=== PATIENT | female | born 1965 | race Caucasian/White ===

== ENCOUNTER 2019-02-06 13:34 | Inpatient (IN) ==
--- NOTE | 2019-02-06 14:28 | PROVIDER DOCUMENTATION ---
HPI-General Adult - General Chief Complaint: Bleeding Disorder Stated Complaint: NEED PLATELETS CHECKED Time Seen by Provider: 02/06/19 14:01 Source: patient, family Allergies/Adverse Reactions: Patient Allergies Allergy/AdvReac Type Severity Reaction Status Date / Time No Known Allergies Allergy Verified 12/10/18 14:07 Home Medications: Home Medication List Medication Instructions Recorded Confirmed Last Taken Type Potassium Chloride E.r. [Klor-Con] 40 meq PO BID 08/12/18 01/29/19 01/29/19 History Morphine E.r. [Ms Contin] 15 mg PO BID 08/18/18 01/29/19 01/29/19 History Morphine E.r. [Ms Contin] 30 mg PO Q12HR 08/28/18 01/29/19 01/29/19 History Oxycodone HCl/Acetaminophen 1 tab PO Q6-8H PRN PRN 08/28/18 01/29/19 01/29/19 History [Percocet 10-325 mg Tablet] Omeprazole [Prilosec] 40 mg PO DAILY 09/04/18 01/29/19 01/29/19 History Diphenhyramine/Al&mg Oh/Lido [Mbx 15 ml MT Q4-6H PRN PRN 09/12/18 01/29/19 01/29/19 History Solution] - History of Present Illness -Gen Adult Nature of Presenting Problems: [id number] presents to the ER with c/o nose bleed and bleeding gums through the [facility]. She states she is actively receiving chemo therapy (Gemzar and Abraxane) for metastatic pancreatic CA. She is a patient of Dr Alcaraz. Yesterday, she had labs done at his office, she reports her platelets were 75,000. She states she was sent here by the office for redraw of labs. She reports getting a neulasta injection last . She also reports that yesterday in the office she was told that she had a possible pulmonary embolism vs something else she was unable to remember. She was not started on blood thinners. Location of Pain/Injury: reports: none Similar Symptoms Previously?: Yes Recently seen or treated by another doctor?: Yes Review of Systems - Adult - REVIEW OF SYSTEMS - ADULT Constitutional: reports: no symptoms reported. denies: chills, fever Eyes: reports: no symptoms reported Ears, Nose, Mouth & Throat: reports: see HPI, epistaxis, other (bleeding gums) Cardiovascular: reports: no symptoms reported Respiratory: reports: no symptoms reported. denies: cough, dyspnea on exertion, shortness of breath, wheezing Gastrointestinal: reports: no symptoms reported Genitourinary: reports: no symptoms reported Musculoskeletal: reports: no symptoms reported Integumentary: reports: no symptoms reported Neurological: reports: no symptoms reported Psychiatric: reports: no symptoms reported Endocrine: reports: no symptoms reported Hematologic/Lymphatic: reports: see HPI, easy bruising, low blood count, transfusions Allergic/Immunologic: reports: no symptoms reported All Other Systems: Reviewed and Negative Past History - Adult - PAST MEDICAL HISTORY-ADULT Review of Records: reports: Old Records Reviewed, Nursing Assessment Review, Medications Reviewed, Social history reviewed & non-contributory. Major Childhood Illnesses: reports: denies history Cardiovascular: reports: blood clots (questionable PE) Respiratory: reports: denies history Gastrointestinal: reports: cancer (pancreatic CA with mets to liver) Obstetrical/Gynecological: reports: denies history Genitourinary: reports: denies history Musculoskeletal: reports: denies history Neurological: reports: denies history Endocrine/Immune: reports: denies history Other Conditions: reports: denies history - PRIOR SURGERIES/PROCEDURES Surgical/Procedure History: reports: cholecystectomy, hysterectomy - IMMUNIZATION STATUS Childhood Immunizations: See Nurse Assessment Flu Vaccine: See Nurse Assessment - FAMILY HISTORY Family History: reviewed, not pertinent - SOCIAL HISTORY Living Situation: family Physical Exam-General - PHYSICAL EXAM-ADULT Initial Vital Signs Reviewed: Yes - CONSTITUTIONAL General Appearance: alert, no apparent distress - EYES Eyes: PERRL/EOMI, pink conjunctivae - HEAD, EARS, NOSE, MOUTH & THROAT HENMT: normocephalic/atraumatic, moist mucous membranes, normal ENT inspection - NECK Neck: non-tender, full range of motion, supple - RESPIRATORY Respiratory: chest non-tender, lungs clear, normal breath sounds - CARDIOVASCULAR Cardiovascular: normal peripheral pulses, regular rate, rhythm - GASTROINTESTINAL (ABDOMEN) Abdominal Exam: soft, tenderness (generalized) - MUSCULOSKELETAL Back Exam: normal inspection Extremity: normal gait Peripheral Pulses: radial (R): 2+, radial (L): 2+ - SKIN Integumentary: warm/dry, ecchymosis (multiple stages of healing), pallor - NEUROLOGIC Neurologic: grossly normal - PSYCHIATRIC Psych/Mental Status: normal mood/affect, normal thought content, oriented x 3 Progress - PLAN OF CARE/RESULTS Progress/Plan/Lab Results: Vital Signs - 8 hr 02/06/19 13:39 Temperature 97 F L Pulse Rate 107 H Respiratory Rate 20 Blood Pressure 103/71 O2 Sat by Pulse Oximetry 97 Orders Category Date Time Status CBC WITH ELECTRONIC DIFF [HEME] Stat Lab 02/06/19 14:03 Uncollected PROTIME WITH INR [COAG] Stat Lab 02/06/19 14:03 Ordered patient verbalizes an understanding of POC and agrees with treatment rendered here today. Result Diagrams: 02/06/19 14:56 - CONSULTS/PCP/HOSPITALIST Notification #1 *Consult/PCP/Hospitalist*: MIYA Hankins Time Discussed: 16:00 Reason/Comments: leukocytosis, Thrombocytopenia Consult Disposition: Admit Departure - Departure Date of Disposition Decision: 02/06/19 Time of Disposition Decision: 16:01 DIAGNOSIS: Thrombocytopenia Leukocytosis Qualifiers: Leukocytosis type: unspecified Qualified Code(s): D72.829 - Elevated white blood cell count, unspecified Disposition: ADMITTED INPATIENT 09 Certified Medical Emergency: Emergent Condition: Critical Additional Freetext Instructions: ED Follow Up Instructions: You have been treated by a care provider in the Emergency Department. These instructions are being provided to you so you can have an understanding of how to care for yourself upon discharge. Upon discharge from the Emergency Department, you are responsible for making arrangements for follow-up care by a physician of your choice. Take all prescribed medications as directed. Return to the Emergency Department immediately for any new or worsening symptoms. You may call the Physician Referral phone number at [phone] of Physicians who are taking new patients. Referrals and Follow-Ups: Valente Ward MD [Primary Care Provider] - - Critical Care Note This patient required my direct & personal management of CC.: No Attestation - Physician/ YAN Attestation Patient care was provided by Advanced Practice Provider:: Yes Advanced Practice Provider:: Zohaib Clay Advanced Practice Provider documentation review:: The Mid-level provider documentation, treatment plan and medical decision making was reviewed by the physician who agrees with all treatment and medical decision making by the [facility]. The physician spent face to face time with patient:: No Advanced Practice Provider documentation review:: Supervising physician onsite and consulted in the evaluation and care of this patient. The physician did not have a face to face encounter with the patient.
[2019-02-06 15:18] LABS: INR 1.17; PROTIME 15.1 Seconds (11.0-16.0)
[2019-02-06 15:40] LABS: PLT 23 X1000 (130-400)
[2019-02-06 15:42] LABS: BASO# 0.28 X1000 (0.0-0.2); BASO% 1.6 % (0.0-0.8); EOS# 0.01 X1000 (0.0-0.7); EOS% 0.1 % (0.0-10.0); HEMATOCRIT 29.5 % (37.0-47.0); HEMOGLOBIN 9.7 g/dL (12.0-16.0); IMM GRAN# 1.95 X1000 (0.0-0.04); IMM GRAN% 11.3 % (0.0-0.5); LYMPH# 3.25 X1000 (1.2-3.4); LYMPH% 18.8 % (20.5-51.1); MCHC 32.9 g/dL (33-37); MCV 100.3 FL (81-99); MONO% 8.7 % (1.7-9.3); NEUT% 59.5 % (42.2-75.2); RBC 2.94 XMIL (4.2-5.4); RDW 18.8 % (11.5-14.5); WBC 17.29 X1000 (4.8-10.8)
[2019-02-06 16:16] LABS: ANISOCYTOSIS 2+; LARGE PLATELETS OCCASIONAL; LYMPHS 12 % (21-51); MONO 2 % (1-9); NRBC 2 % (0-0); SEGS 82 % (42-75)
--- NOTE | 2019-02-06 17:39 | HISTORY AND PHYSICAL ---
HISTORY OF PRESENT ILLNESS: This is a 53-year-old who apparently is getting chemotherapy, got her last chemotherapy last week, I think last . She is followed by Dr. Valente Ward for pancreatic cancer with metastases I believe to the liver. When she presented, her platelet counts were down to 23,000. They went from 75,000 a week before and came down to 25,000. She did on Saturday, this is Saturday, she had some trouble with nosebleed and with a little bleeding when she was brushing her teeth. PAST MEDICAL HISTORY: Pretty unremarkable. She did have cervical cancer, and that is what she had a hysterectomy for. I think she has had her gallbladder out. Really no other medical issues and now treating for metastatic pancreatic cancer. ALLERGIES: She has no known drug allergies. SOCIAL HISTORY: She does not drink any alcohol, but she smokes about a pack a day. FAMILY HISTORY: Positive for cancer. Father of lung cancer I believe. REVIEW OF SYSTEMS: General: Her weight has been pretty steady. She has not been eating real well, not much appetite, not sure if she has lost any weight. No fever or chills. HEENT: No change in visual or hearing acuity. Respiratory: No increased work of breathing or dyspnea. Cardiovascular: No chest pain or tachy palpitation. Gastrointestinal/Genitourinary: No gross hematuria or dysuria. No nausea. No hematemesis or hematochezia. Endocrinologic/hematologic: No significant history. PHYSICAL EXAMINATION: VITAL SIGNS: In the emergency room, temperature 97 degrees, pulse 107, respirations 20, blood pressure 103/70. EYES: Pupils are equal and round. LUNGS: Clear in all lung resendez. CARDIOVASCULAR EXAM: Regular rhythm and rate without murmur or S3. ABDOMEN: Soft. SKIN: Warm and dry. She has petechiae and some ecchymosis on both extremities rather symmetrical and some areas of excoriation where she was scratching. She has a few petechiae on her lip and her face. No bleeding in the oral nasal mucosa. LABORATORY DATA: White count 17,290, hematocrit is 29, platelet count is 23,000. Protime is 15, INR is 1.7. In addition, she had a CAT scan for follow-up staging on her pancreatic cancer, and they discovered what sounds like a small pulmonary embolus so he started her on Xarelto and that was started I think on Saturday. ASSESSMENT AND PLAN: She has got symptomatic thrombocytopenia, and she has recently been diagnosed with a pulmonary embolus with underlying pancreatic cancer. I am going to not give any platelets at this time. I think the white count is elevated. I think she has gotten some neutrophil stimulant and growth factor last week, at least that was what she indicated by her report. I am going to put her on a low dose of Lovenox for right now. We will check her platelet count again in the morning. She appears to be stable. No sign of internal bleeding, and if the platelet count is coming up, then I think we can put her back on Xarelto and let her go home. She shows no sign of infection or sepsis. I think her elevation of white count, which is predominantly neutrophils and some immature granulocytes, is likely secondary to bone marrow stimulant. cc: Aries Rayo MD
[2019-02-06] MEDS ORDERED: MBX SOLUTION MT PRN (17:47)
[2019-02-06] MEDS ORDERED: NICODERM PATCH TD ONE (17:47)
[2019-02-06] MEDS ORDERED: TYLENOL PO PRN (17:47)
[2019-02-06] MEDS ORDERED: ZOFRAN IV PRN (17:47)
[2019-02-06] MEDS: LOVENOX SUBQ SCH (18:07)
[2019-02-06] MEDS: KLOR-CON PO SCH (21:02)
[2019-02-06] MEDS: MS CONTIN PO SCH (21:02)
[2019-02-06] MEDS: PRILOSEC PO SCH (21:03)
[2019-02-06] MEDS: PERCOCET-10 PO PRN (21:44)
[2019-02-07 00:46] LABS: URINE SOURCE CLEAN CATCH
[2019-02-07 00:52] LABS: BILIRUBIN URINE SMALL (NEGATIVE); BLOOD URINE TRACE (NEGATIVE); COLOR YELLOW; GLUCOSE URINE NEGATIVE (NEGATIVE); KETONE URINE NEGATIVE (NEGATIVE); LEUKOCYTES URINE NEGATIVE (NEGATIVE); NITRITE URINE NEGATIVE (NEGATIVE); PH URINE 6.5; PROTEIN URINE 30 mg/dL (NEGATIVE); SP GRAVITY URINE 1.022; TURBIDITY URINE HAZY (CLEAR); UR EPITHELIAL CELLS >10 /HPF (<10); URINE BACTERIA 1+ /HPF; URINE CASTS NONE SEEN; URINE CRYSTALS NONE SEEN; URINE RBC <10 /HPF (<10); URINE SMALL ROUND CELLS NONE SEEN; URINE WBC <10 /HPF (<10); URINE YEAST PRESENT; UROBILINOGEN URINE 8 mg/dL (NORMAL)
[2019-02-07] MEDS: PERCOCET-10 PO PRN ×3 (06:16→21:01)
[2019-02-07] MEDS: PRILOSEC PO SCH ×4 (06:16→20:32)
[2019-02-07 07:37] LABS: HEMOGLOBIN 9.4 g/dL (12.0-16.0); RBC 2.82 XMIL (4.2-5.4); WBC 22.38 X1000 (4.8-10.8)
[2019-02-07 07:38] LABS: BASO# 0.28 X1000 (0.0-0.2); BASO% 1.3 % (0.0-0.8); EOS# 0.02 X1000 (0.0-0.7); EOS% 0.1 % (0.0-10.0); HEMATOCRIT 28.2 % (37.0-47.0); IMM GRAN# 3.24 X1000 (0.0-0.04); IMM GRAN% 14.5 % (0.0-0.5); LYMPH% 17.4 % (20.5-51.1); MCH 33.3 PG (27-31); MCHC 33.3 g/dL (33-37); MONO# 2.04 X1000 (0.11-0.59); MONO% 9.1 % (1.7-9.3); NEUT% 57.6 % (42.2-75.2); RDW 19.1 % (11.5-14.5)
[2019-02-07 07:40] LABS: PLT 25 X1000 (130-400)
[2019-02-07 08:08] LABS: AGAP 6; ALB/GLOB RATIO 0.9; ALKALINE PHOSPHATASE 504 U/L (32-104); BUN 4 mg/dL (8-22); CALCIUM 8.8 mg/dL (8.8-10.2); CHLORIDE 101 mmol/L (98-107); COSMO 262; CREATININE 0.7 mg/dL (0.5-0.9); ESTIMATED GFR > 60; GLUCOSE 82 mg/dL (70-104); GOT 27 U/L (10-30); GPT 11 U/L (10-36); MAGNESIUM 1.6 mg/dL (1.5-2.7); POTASSIUM 3.9 mmol/L (3.5-5.1); SODIUM 133 mmol/L (136-145); TCO2 26 mmol/L (25-35); TOTAL BILIRUBIN 1.26 mg/dL (0.20-1.00); TOTAL PROTEIN 6.2 g/dL (6.3-8.3)
[2019-02-07] MEDS: MS CONTIN PO SCH ×2 (08:17→20:20)
[2019-02-07] MEDS: KLOR-CON PO SCH ×2 (08:17→20:19)
--- NOTE | 2019-02-07 12:42 | PROGRESS NOTE ---
DATE: 02/07/2019 SUBJECTIVE: Mrs Chavez feels fine. She had a good night. She is still not hungry, not eating much, and remains afebrile. OBJECTIVE: Vital signs: Temperature 98.3 degrees, pulse 80, respirations 16, blood pressure 111/40. HEENT: Pupils are equal and round. No oronasal mucosa bleeding. Lungs: Clear in all lung resendez. Cardiovascular: Regular rhythm and rate without murmur or S3. Abdomen: Soft. Skin: Warm and dry. Petechiae have faded in her arms. LABORATORY DATA: Platelet count around 25,000. ASSESSMENT: 1. Symptomatic thrombocytopenia in the way of petechiae and bruising. No active bleeding. Platelet count 25,000. She feels pretty good. 2. Poor appetite. Encourage p.o. intake. PLAN: We will let her have some Phenergan as needed for nausea. If platelet count is okay and if still not bleeding and above 30,000, I think she can probably go home tomorrow and I will put her back on her Xarelto. Right now, she is getting just low-dose Lovenox 40 mg subcutaneous q.24 hours. There is no swelling in her lower extremities and no complaints of shortness of breath. cc: Aries Rayo MD
[2019-02-07] MEDS: PHENERGAN PO PRN ×2 (12:48→20:27)
[2019-02-07] MEDS: LOVENOX SUBQ SCH (17:53)
[2019-02-07] MEDS: NICODERM PATCH TD SCH (18:10)
[2019-02-07 18:30] LABS: BASO# 0.52 X1000 (0.0-0.2); BASO% 2.2 % (0.0-0.8); EOS# 0.03 X1000 (0.0-0.7); EOS% 0.1 % (0.0-10.0); HEMATOCRIT 26.8 % (37.0-47.0); HEMOGLOBIN 8.8 g/dL (12.0-16.0); IMM GRAN# 3.59 X1000 (0.0-0.04); LYMPH# 3.76 X1000 (1.2-3.4); LYMPH% 15.8 % (20.5-51.1); MCH 33.1 PG (27-31); MCHC 32.8 g/dL (33-37); MCV 100.8 FL (81-99); MONO# 2.33 X1000 (0.11-0.59); MONO% 9.8 % (1.7-9.3); MPV 11.6 FL (7.4-10.4); NEUT# 13.64 X1000 (1.4-6.5); NEUT% 57.1 % (42.2-75.2); RBC 2.66 XMIL (4.2-5.4); WBC 23.87 X1000 (4.8-10.8)
[2019-02-07 18:31] LABS: RDW 19.2 % (11.5-14.5)
[2019-02-07 18:32] LABS: PLT 31 X1000 (130-400)
[2019-02-07 19:49] LABS: BANDS 1 % (0-1); LYMPHS 16 % (21-51); MONO 4 % (1-9); NRBC 2 % (0-0); SEGS 77 % (42-75)
[2019-02-07 19:50] LABS: ANISOCYTOSIS 1+; LARGE PLATELETS OCCASIONAL
[2019-02-08] MEDS: PERCOCET-10 PO PRN ×3 (03:26→18:51)
[2019-02-08] MEDS: PRILOSEC PO SCH ×3 (06:19→20:18)
[2019-02-08] MEDS: PHENERGAN PO PRN ×3 (06:22→21:19)
[2019-02-08 07:33] LABS: EOS# 0.02 X1000 (0.0-0.7); EOS% 0.1 % (0.0-10.0); HEMOGLOBIN 9.1 g/dL (12.0-16.0); LYMPH# 4.64 X1000 (1.2-3.4); LYMPH% 16.1 % (20.5-51.1); MCH 34.1 PG (27-31); MCHC 33.7 g/dL (33-37); MCV 101.1 FL (81-99); MONO# 3.14 X1000 (0.11-0.59); MONO% 10.9 % (1.7-9.3); MPV 12.8 FL (7.4-10.4); PLT 38 X1000 (130-400); RBC 2.67 XMIL (4.2-5.4); RDW 19.6 % (11.5-14.5); WBC 28.88 X1000 (4.8-10.8)
[2019-02-08 07:38] LABS: LYMPHS 18 % (21-51); MONO 6 % (1-9); SEGS 76 % (42-75)
[2019-02-08] MEDS: KLOR-CON PO SCH ×2 (08:51→20:18)
[2019-02-08] MEDS: MS CONTIN PO SCH ×2 (08:52→20:18)
--- NOTE | 2019-02-08 13:08 | HEMO/ONC CONSULTATION ---
DATE: 02/08/2019 HISTORY OF PRESENT ILLNESS: Ms. Chavez is a 53-year-old white female followed by Dr. Ward with metastatic pancreatic carcinoma. She was admitted over the weekend with epistaxis and thrombocytopenia. She had chemotherapy with gemcitabine and Abraxane within the last 10 days. She received Neulasta in the office after her treatment. A CT scan of the chest done last week showed evidence of a possible pulmonary embolus, and she was started on Xarelto. PAST MEDICAL HISTORY: As noted above. She has a history of pancreatic cancer with liver metastasis. SOCIAL HISTORY AND FAMILY HISTORY: Well documented in Dr. Ward's note from the clinic. REVIEW OF SYSTEMS: Since admission, she has had no additional bleeding. She has noticed some petechial spots on her skin. DIAGNOSTIC DATA: In the emergency room, her initial platelet count was 23,000 with hemoglobin 9.7, white count 17.2. ASSESSMENT AND PLAN: The patient was started on antiemetics and is on Lovenox subcutaneously b.i.d. She has had no further bleeding over the past 48 hours. This morning, her platelet count is improved at 38,000. Her hematocrit remains stable. White count is 28.8, likely due to growth factor support. cc: Santiago Nielson MD
--- NOTE | 2019-02-08 13:13 | HEMO/ONC CONSULTATION ---
DATE: 02/08/2019 CONTINUATION REPORT PHYSICAL EXAMINATION: The patient is in no acute distress. Her vital signs are stable. She is alert and oriented. HEENT: The pupils are equal and reactive. There is no oral thrush. Neck is supple. No nodes. No thyromegaly. The skin shows a few petechia and some ecchymosis on the upper extremities. Lungs are clear with bilateral breath sounds. Heart is regular rate and rhythm. No murmur or gallop. The abdomen is soft and nontender. Liver and spleen not palpated. Neurologic: Nonfocal. IMPRESSION: Thrombocytopenia. The patient has very likely chemotherapy induced thrombocytopenia secondary to recent treatment. Her PTE is a compounding problem in the setting of low platelet count. If she has evidence of active bleeding, then she should be considered for IVC filter placement, but I have discussed her case with Dr. Rayo, and the patient appears clinically stable with improving platelet count. There does not appear to be evidence of heparin induced thrombocytopenia, but we will check for heparin dependent antibodies. If she has evidence of worsening respiratory symptoms, then she should be reevaluated for additional PTE. A Doppler study on her lower extremities has been obtained and shows no evidence of active thrombosis in the lower extremities. I would recommend we monitor her closely, and hopefully her platelet count will continue to improve as her bone marrow recovers from recent chemotherapy. Once her platelet count increases above 50,000, it would be reasonable to resume full dose anticoagulation. cc: Santiago Nielson MD
[2019-02-08] MEDS ORDERED: DULCOLAX PR PRN (13:51)
[2019-02-08] MEDS: MILK OF MAGNESIA PO SCH (14:06)
--- NOTE | 2019-02-08 14:06 | PROGRESS NOTE ---
DATE: 02/08/2019 SUBJECTIVE: Ms. Chavez is complaining of constipation and nausea. No breathing difficulty. Her petechiae is clearing. The little bit of purpura on her arms is clearing up as well. OBJECTIVE: Vital Signs: Temp 98.6 degrees, pulse 86, respirations 16, blood pressure 104/38. HEENT: Pupils are equal and round. Lungs: Clear in all lung resendez. Cardiovascular: Regular rhythm and rate without murmur or S3. Abdomen: Soft. Skin: Warm and dry. Urine output is 600 mL. ASSESSMENT AND PLAN: 1. Thrombocytopenia, very likely chemotherapy-induced thrombocytopenia with recent treatment. They found incidental pulmonary thromboemboli on CT scan. She has really not been symptomatic. She had a little bit of petechiae and purpura, which is clearing. Her platelet counts are coming up. Hopefully, platelet counts will be above 50,000, and can start back on her Xarelto and let her go home. 2. Leukocytosis, which I think is secondary to bone marrow stimulation. 3. Being treated for metastatic pancreatic carcinoma. cc: Aries Rayo MD
[2019-02-08] MEDS: NS + KCL 20 MEQ 1,000 ML IV SCH (15:07)
[2019-02-08] MEDS: LOVENOX SUBQ SCH (17:37)
[2019-02-08] MEDS: NICODERM PATCH TD SCH (17:37)
[2019-02-08] MEDS: LACTULOSE PO SCH (20:18)
[2019-02-09] MEDS: PERCOCET-10 PO PRN ×4 (00:54→22:48)
[2019-02-09] MEDS: NS + KCL 20 MEQ 1,000 ML IV SCH ×4 (00:55→17:08)
[2019-02-09] MEDS: PHENERGAN PO PRN ×4 (04:00→22:48)
[2019-02-09] MEDS: PRILOSEC PO SCH ×3 (06:28→20:39)
[2019-02-09] MEDS: MILK OF MAGNESIA PO SCH (08:00)
[2019-02-09] MEDS: KLOR-CON PO SCH ×2 (08:01→20:40)
[2019-02-09] MEDS: NICODERM PATCH TD SCH (08:02)
[2019-02-09] MEDS: LACTULOSE PO SCH ×2 (08:03→20:41)
[2019-02-09] MEDS: MS CONTIN PO SCH ×2 (09:12→20:39)
[2019-02-09 13:45] LABS: BASO# 0.42 X1000 (0.0-0.2); BASO% 1.2 % (0.0-0.8); HEMATOCRIT 28.3 % (37.0-47.0); HEMOGLOBIN 9.1 g/dL (12.0-16.0); IMM GRAN# 4.36 X1000 (0.0-0.04); IMM GRAN% 12.2 % (0.0-0.5); LYMPH# 4.38 X1000 (1.2-3.4); LYMPH% 12.2 % (20.5-51.1); MCH 33.3 PG (27-31); MCHC 32.2 g/dL (33-37); MCV 103.7 FL (81-99); MONO# 3.49 X1000 (0.11-0.59); MONO% 9.7 % (1.7-9.3); MPV 12.4 FL (7.4-10.4); NEUT# 23.21 X1000 (1.4-6.5); NEUT% 64.7 % (42.2-75.2); PLT 61 X1000 (130-400); RBC 2.73 XMIL (4.2-5.4); RDW 20.6 % (11.5-14.5); WBC 35.86 X1000 (4.8-10.8)
[2019-02-09 15:16] LABS: BANDS 2 % (0-1); LYMPHS 12 % (21-51); MONO 6 % (1-9); NRBC 5 % (0-0); SEGS 75 % (42-75)
[2019-02-09 15:17] LABS: LARGE PLATELETS OCCASIONAL
--- NOTE | 2019-02-09 16:43 | PROGRESS NOTE ---
DATE: 02/09/2019 SUBJECTIVE: Ms Chavez is feeling good. She still has not had a bowel movement. Her platelet count was above 60,000, but noninvasive venous studies showed a deep venous thrombosis, I believe in the right leg, and she has known pulmonary thromboemboli. I will put her back on her Xarelto. It was started at a loading dose of 50 mg twice a day, and hopefully, she can be discharged in the morning. OBJECTIVE: Temperature is 98.5 degrees pulse 87, respirations 15, blood pressure 112/41. Pupils are equal and round. Lungs are clear in all lung resendez. Cardiovascular: Regular rhythm and rate without murmur or S3. Abdomen is soft. Skin is warm and dry. DIAGNOSTIC STUDIES: White count 35,860, hematocrit is 28 hemoglobin 9.1, platelet count is 61,000. ASSESSMENT AND PLAN: 1. Thrombocytopenia, likely secondary to chemotherapy-induced thrombocytopenia from recent treatment. She had a PTE incidentally found on CT scan. There was consideration of whether she needs an IVC filter. She was hoping we would not have to do. Platelet counts are back up. We did do a noninvasive, and she has got deep venous thrombosis in her leg. The plan is to start her on Xarelto 15 mg b.i.d. and hopefully can discharge her tomorrow. 2. She is complaining of constipation, and we are giving her a bowel regimen that hopefully will help. She did claim she had a bowel movement. She is on lactulose 30 mL b.i.d., Dulcolax suppository. cc: Aries Rayo MD
[2019-02-09] MEDS: XARELTO PO SCH (20:39)
[2019-02-10] MEDS: NS + KCL 20 MEQ 1,000 ML IV SCH (04:12)
[2019-02-10] MEDS: PHENERGAN PO PRN (06:15)
[2019-02-10] MEDS: PERCOCET-10 PO PRN ×2 (06:15→12:18)
[2019-02-10 07:48] VITALS: BP 113/48
[2019-02-10] MEDS: NICODERM PATCH TD SCH (09:08)
[2019-02-10] MEDS: PRILOSEC PO SCH (09:08)
[2019-02-10] MEDS: XARELTO PO SCH (09:09)
[2019-02-10] MEDS: MS CONTIN PO SCH (09:09)
[2019-02-10] MEDS: KLOR-CON PO SCH (09:15)
[2019-02-10] MEDS: LACTULOSE PO SCH (09:15)
[2019-02-10] MEDS: MILK OF MAGNESIA PO SCH (09:15)
--- NOTE | 2019-02-10 11:52 | DISCHARGE SUMMARY ---
ADMISSION DATE: 02/06/2019 DISCHARGE DATE: 02/10/2019 HISTORY: She is followed by Dr. Valente Ward. This is a 53-year-old and in chemotherapy for lung cancer. Last chemotherapy was last week on , and followed by Dr. Valente Ward. Actually, she has a history of pancreatic cancer with metastasis to the liver so it is not lung cancer, but pancreatic cancer. She presented with platelet counts that were 23,000. She had some petechiae and purpura on her arms, and a little bit on her lips. Platelet count went from 75,000 down to 25,000, and so she was sent over here to the hospital. She had a recent CT scan for evaluation, and found incidental pulmonary emboli so we watched her platelet count. We did check noninvasive venous of her lower extremities. She did have a DVT I believe in her right leg. She had been put on Xarelto. I held the Xarelto, and had her on low-dose Lovenox for about 48 hours. Platelet count came up, and was above 50,000. The petechiae were resolving. No sign of bleeding[place] [address]. Hematocrit was 28. She had no sign of infection, and was feeling good. She complained of a little bit of constipation so I felt she could go home on 02/10/2019. She will go home on her home medications. MEDICATIONS: She takes morphine ER. She takes omeprazole. She takes Phenergan as needed, and then she is on the Xarelto which she has at home. She will take 20 mg of Xarelto daily. FOLLOW UP: Dr. Ward on . cc: Aries Rayo MD
--- NOTE | 2019-02-11 08:38 | Extremity Venous Study ---
PROCEDURE NAME: Venous U/S Bilateral Legs - 02/09/2019 REFERRING PHYSICIAN: Dr. Nielson. READING PHYSICIAN: Humble Cummings MD. OFFICE MESSENGER: Arturo. INDICATION: Swelling of the legs. FINDINGS: The deep and superficial veins of both lower extremities were imaged throughout their course. On the left side, they were compressible and patent without thrombus. On the right side, there was thrombus, decreased compressibility and flow in the right mid superficial femoral and popliteal veins. The other deep and superficial veins of the right leg were compressible, patent, and without thrombus. INTERPRETATION: Acute deep venous thrombosis is present in the right superficial femoral and popliteal veins. cc: MD Santiago Chester MD
== END 2019-02-10 13:40 | disposition home or self-care (01) | DRG 813 ==
LOC: ED 13:34 → 1N 16:59
PROVIDERS: ATTEND Emergency Medicine

== ENCOUNTER 2019-04-29 13:50 | Inpatient (IN) ==
[2019-04-29] MEDS ORDERED: NS 1,000 ML IV ONE ×4 (14:15→19:43)
[2019-04-29] MEDS ORDERED: ZOSYN 3.375 GM in NS 50 ML IV ONE (14:16)
[2019-04-29] MEDS ORDERED: VANCOMYCIN 1 GM/NS 1 GM/250 ML IVPB IV ONE (14:16)
--- NOTE | 2019-04-29 14:56 | Diag Imaging Result Doc PS360 ---
EXAM: CHEST-2 VIEWS HISTORY: cough TECHNIQUE: Two views COMPARISON: 07/07/2018 FINDINGS: The lungs are hyperexpanded. There are infiltrates in the right lung base. No cardiomegaly. No pulmonary edema. No effusions. There is a right-sided portacatheter. No pneumothorax. IMPRESSION: Right basilar pneumonia. These are most pronounced in the right middle lobe. Electronically signed by Deyvi Veras 04/29/2019 2:54 PM
[2019-04-29 15:52] LABS: BASO# 0.01 X1000 (0.0-0.2); BASO% 0.1 % (0.0-0.8); HEMATOCRIT 25.7 % (37.0-47.0); HEMOGLOBIN 8.2 g/dL (12.0-16.0); IMM GRAN# 0.08 X1000 (0.0-0.04); IMM GRAN% 0.8 % (0.0-0.5); LYMPH# 1.16 X1000 (1.2-3.4); LYMPH% 11.6 % (20.5-51.1); MCH 35.5 PG (27-31); MCHC 31.9 g/dL (33-37); MCV 111.3 FL (81-99); MONO# 1.11 X1000 (0.11-0.59); MONO% 11.1 % (1.7-9.3); MPV 12.3 FL (7.4-10.4); NEUT# 7.65 X1000 (1.4-6.5); NEUT% 76.4 % (42.2-75.2); PLT 83 X1000 (130-400); RBC 2.31 XMIL (4.2-5.4); WBC 10.01 X1000 (4.8-10.8)
[2019-04-29 16:06] LABS: AGAP 15; ALB/GLOB RATIO 0.8; ALBUMIN 2.2 g/dL (3.5-5.0); ALKALINE PHOSPHATASE 448 U/L (32-104); BUN 8 mg/dL (8-22); CALCIUM 7.1 mg/dL (8.8-10.2); CHLORIDE 99 mmol/L (98-107); COSMO 267; CREATININE 0.8 mg/dL (0.5-0.9); ESTIMATED GFR > 60; GLUCOSE 112 mg/dL (70-104); GOT 32 U/L (10-30); GPT 16 U/L (10-36); SODIUM 134 mmol/L (136-145); TCO2 20 mmol/L (25-35); TOTAL BILIRUBIN 2.99 mg/dL (0.20-1.00)
--- NOTE | 2019-04-29 17:02 | PROVIDER DOCUMENTATION ---
This chart was entered by Brant Beth Scribe, acting as scribe for Humble Mccrary MD. HPI-General Adult - General Chief Complaint: Cough Stated Complaint: PNEUMONIA,LOW BP Time Seen by Provider: 04/29/19 13:56 Source: patient, family Allergies/Adverse Reactions: Patient Allergies Allergy/AdvReac Type Severity Reaction Status Date / Time No Known Allergies Allergy Verified 02/26/19 13:10 Home Medications: Home Medication List Medication Instructions Recorded Confirmed Last Taken Type Potassium Chloride E.r. [Klor-Con] 40 meq PO BID 08/12/18 04/28/19 02/25/19 20:00 History Morphine E.r. [Ms Contin] 45 mg PO Q12HR 08/28/18 04/28/19 02/25/19 20:00 History Oxycodone HCl/Acetaminophen 1 tab PO Q6-8H PRN PRN 08/28/18 04/28/19 02/25/19 14:00 History [Percocet 10-325 mg Tablet] Omeprazole [Prilosec] 40 mg PO DAILY 09/04/18 04/28/19 02/26/19 09:00 History Promethazine [Phenergan] 12.5 mg PO BID 02/06/19 04/28/19 02/26/19 09:00 History Rivaroxaban [Xarelto] 10 mg PO DAILY 02/24/19 04/28/19 02/26/19 09:00 History Cyclobenzaprine [Flexeril] 10 mg PO QHS #10 tab 04/28/19 Unknown Rx Docusate Sodium [Colace] 200 mg PO DAILY 04/28/19 04/28/19 Unknown History Gabapentin E.r. [Gralise] 1 tab PO DAILY 04/28/19 04/28/19 Unknown History - History of Present Illness -Gen Adult Nature of Presenting Problems: Pt is a 53 yof who presents to the ED with a CC of a cough. Pt reports she was seen here yesterday for a fall. Pt reports she had a CT done and states she was referred to come to the ED with a diagnosis of pneumonia. Pt was also referred to the ED for low blood pressure. Pt reports a hx of pancreatic cancer. Pt reports currently being on chemotherapy. Pt denies a fever. Pt complains of a cough. Pt reports no other complaints. Pt reports being a 1ppd smoker. Location of Pain/Injury: reports: none Pain Radiation: reports: no radiation Quality of Pain: reports: none Severity: reports: mild Onset/Duration: reports: 24 hours ago Timing: reports: still present Associated Symptoms: reports: cough Similar Symptoms Previously?: Yes Recently seen or treated by another doctor?: Yes Review of Systems - Adult - REVIEW OF SYSTEMS - ADULT Constitutional: reports: see HPI Eyes: reports: no symptoms reported Ears, Nose, Mouth & Throat: reports: no symptoms reported Cardiovascular: reports: no symptoms reported Respiratory: reports: see HPI, cough Gastrointestinal: reports: no symptoms reported Genitourinary: reports: no symptoms reported Musculoskeletal: reports: no symptoms reported Integumentary: reports: no symptoms reported Neurological: reports: no symptoms reported Psychiatric: reports: no symptoms reported Endocrine: reports: no symptoms reported Hematologic/Lymphatic: reports: no symptoms reported Allergic/Immunologic: reports: no symptoms reported All Other Systems: Reviewed and Negative Past History - Adult - PAST MEDICAL HISTORY-ADULT Review of Records: reports: Old Records Reviewed, Nursing Assessment Review, Medications Reviewed, Social history reviewed & non-contributory. Major Childhood Illnesses: reports: denies history Cardiovascular: reports: blood clots (questionable PE) Respiratory: reports: denies history Gastrointestinal: reports: cancer (pancreatic CA with mets to liver) Obstetrical/Gynecological: reports: denies history Genitourinary: reports: denies history Musculoskeletal: reports: denies history Neurological: reports: denies history Endocrine/Immune: reports: denies history Other Conditions: reports: denies history - PRIOR SURGERIES/PROCEDURES Surgical/Procedure History: reports: cholecystectomy, hysterectomy - IMMUNIZATION STATUS Childhood Immunizations: See Nurse Assessment Flu Vaccine: See Nurse Assessment - FAMILY HISTORY Family History: reviewed, not pertinent - SOCIAL HISTORY Smoking: cigarettes, greater than 1 pack/day Substance Use: none/never, denies Alcohol Use Frequency: never Physical Exam-General - PHYSICAL EXAM-ADULT Initial Vital Signs Reviewed: Yes - CONSTITUTIONAL General Appearance: alert, mild distress - EYES Eyes: PERRL/EOMI - HEAD, EARS, NOSE, MOUTH & THROAT HENMT: normocephalic/atraumatic, moist mucous membranes - NECK Neck: non-tender, full range of motion - RESPIRATORY Respiratory: respiratory distress (Mild), rhonchi - CARDIOVASCULAR Cardiovascular: no JVD, tachycardia - GASTROINTESTINAL (ABDOMEN) Abdominal Exam: non tender, soft - MUSCULOSKELETAL Extremity: normal range of motion, non-tender - SKIN Integumentary: warm/dry, pallor - NEUROLOGIC Neurologic: grossly normal, no motor/sensory deficits - PSYCHIATRIC Psych/Mental Status: normal mood/affect, normal thought content, normal thought process, oriented x 3 Progress - PLAN OF CARE/RESULTS Progress/Plan/Lab Results: Vital Signs - 8 hr 04/29/19 13:55 Temperature 97.7 F Pulse Rate 112 H Respiratory Rate 18 Blood Pressure 84/54 O2 Sat by Pulse Oximetry 94 L Result Diagrams: 04/29/19 15:03 04/29/19 15:03 - XRAY 1 XRAY: Bilateral XRAY Study: Chest Impression: See EMR Report ( EXAM: CHEST-2 VIEWS HISTORY: cough TECHNIQUE: Two views COMPARISON: 07/07/2018 FINDINGS: The lungs are hyperexpanded. There are infiltrates in the right lung base. No cardiomegaly. No pulmonary edema. No effusions. There is a right-sided portacatheter. No pneumothorax. IMPRESSION: Right basilar pneumonia. These are most pronounced in the right middle lobe. Electronically signed by Deyvi Veras 04/29/2019 2:54 PM 04/29/19 1454 Interpreting Physician: Deyvi Veras MD Dictated Date/Time: 04/29/19 145 cc: Humble Mccrary MD; None,PCP) - CONSULTS/PCP/HOSPITALIST Notification #1 *Consult/PCP/Hospitalist*: Dr. Zhang - Hospitalist Time Discussed: 16:40 Reason/Comments: Made aware of pt and accepts admission. Consult Disposition: Admit Departure - Departure Date of Disposition Decision: 04/29/19 Time of Disposition Decision: 16:00 DIAGNOSIS: Pneumonia involving right lung Qualifiers: Pneumonia type: due to unspecified organism Lung location: unspecified part of lung Qualified Code(s): J18.9 - Pneumonia, unspecified organism Disposition: ADMITTED INPATIENT 09 Certified Medical Emergency: Emergent Condition: Serious Additional Instructions: ED Follow Up Instructions: You have been treated by a care provider in the Emergency Department. These instructions are being provided to you so you can have an understanding of how to care for yourself upon discharge. Upon discharge from the Emergency Department, you are responsible for making arrangements for follow-up care by a physician of your choice. Take all prescribed medications as directed. Return to the Emergency Department immediately for any new or worsening symptoms. You may call the Physician Referral phone number at [phone] to obtain a list of Physicians who are taking new patients. Referrals and Follow-Ups: None,PCP [Primary Care Provider] - - Critical Care Note This patient required my direct & personal management of CC.: No Attestation - Physician/ YAN Attestation Patient care was provided by Advanced Practice Provider:: No The physician spent face to face time with patient:: Yes Advanced Practice Provider documentation review:: Supervising physician onsite and consulted in the evaluation and care of this patient. The physician did have a face to face encounter with the patient. This chart was documented by the indicated scribe, (Brant Beth, Rayshawnibedith) and accurately reflects the services I performed and decisions made by me, Be Humble judd MD, as attested by the provider's signature.
[2019-04-29] MEDS ORDERED: SODIUM CHLORIDE 0.9% INJ PRN (17:20)
[2019-04-29] MEDS ORDERED: PHENERGAN IV PRN (17:20)
[2019-04-29] MEDS ORDERED: TYLENOL PO PRN (17:20)
[2019-04-29] MEDS: DUONEB (A & A) INH SCH ×2 (19:20→23:46)
[2019-04-29] MEDS: PERCOCET-10 PO PRN (22:09)
[2019-04-29] MEDS: ZOSYN 3.375 GM in NS 50 ML IV SCH (22:11)
[2019-04-29] MEDS: KLOR-CON PO SCH (22:18)
[2019-04-29] MEDS: NS 1,000 ML IV SCH (23:27)
[2019-04-30] MEDS: DUONEB (A & A) INH SCH ×2 (03:45→07:36)
--- NOTE | 2019-04-30 03:57 | HISTORY AND PHYSICAL ---
CHIEF COMPLAINT: Cough. HISTORY OF PRESENT ILLNESS: A 53-year-old, female, with a past medical history of pancreatic cancer with metastasis to the liver, thrombocytopenia, chronic pain, pulmonary embolism and DVT, on chronic anticoagulation, GERD, history of cervical cancer, status post hysterectomy 20 years ago, who was referred to come to the emergency department from the coal getter/oncologist's office due to a recent CT scan that showed pneumonia. As per the patient, she started having symptoms 3 days ago, with cough with some phlegm which is clear. She is not complaining of fever or chills. No nausea, no vomiting, no diarrhea, no constipation. She has been losing weight. Apparently in August, her weight was around 220 pounds, and now is down to 113. She reports she has been a smoker of 1 pack a day of cigarettes for at least 20 years. In the emergency department, she was found to be tachycardic. We do have a new x-ray that shows right basilar pneumonia. She received already a dose of Zosyn and vancomycin. I will continue with her home medications as well. I will put her on some breathing treatment. Her oxygen saturation is okay. She will be hospitalized on the medical floor. She denies also dysuria, leg pain, dizziness. She was told at the coal getter/oncologist's office that she may have a urinary tract infection, but she is completely asymptomatic, but apparently 4 days ago, she had some symptoms. I will get a culture anyway. REVIEW OF SYSTEMS: This patient has been losing weight since August 2018. She used to weight 220 pounds, and now she is down to 113 pounds. She is complaining of chronic pain in her abdomen, likely due to her pancreatic cancer with liver metastasis. All of the 14 points of review of systems were reviewed and all of them negative except as per HPI. PAST SURGICAL HISTORY: She had cervical cancer, status post hysterectomy 20 years ago; gallbladder removed 26 years ago, laparoscopically, and Port-A-Cath recently on August 2018. FAMILY HISTORY: Mother with lung cancer, apparently mesothelioma. Father with lung cancer. Grandmother with breast cancer and colon cancer. PAST MEDICAL HISTORY: Pancreatic cancer with liver metastasis, thrombocytopenia, chronic pain, pulmonary embolism plus DVT, GERD, and cervical cancer. SOCIAL HISTORY: She lives with her daughter and her . She smokes 1 pack a day, and she has been smoking for at least 20 years. No alcohol. No drugs. ALLERGIES: She denies allergies. PHYSICAL EXAMINATION: VITAL SIGNS: Temperature 97.7 degrees, pulse 93, respiratory rate 19, blood pressure 94/71, oxygen saturation 95% on room air. HEENT: Head normocephalic, no trauma. PERRLA. She seems to be a little bit jaundiced with some icteric sclera. NECK: Supple. No JVD. Central trachea. CHEST: Clear to auscultation. Some crepitus and rhonchi at the level of the right base, and a little bit on the left side as well at the base. ABDOMEN: Soft. Tenderness to palpation at the level of the epigastric and periumbilical area. EXTREMITIES: No edema, no clubbing, no cyanosis. NEUROLOGICAL: The patient is completely alert and oriented x3. No focal deficits. LABORATORY DATA: WBC 10, hemoglobin 8.2, hematocrit 25.7, platelets 83,000. Sodium 134, potassium 3, chloride 99, bicarbonate 20, BUN 8, creatinine 0.8, glucose 112, calcium 7.1. Total bilirubin 2.99, AST 32, ALT 16, alkaline phosphatase 448, albumin 2.2. ASSESSMENT AND PLAN: 1. Right basilar pneumonia. I will put this patient on antibiotics, broad spectrum. I will put her on breathing treatment and oxygen as needed. At this moment, her oxygen saturation is within normal limits, and she is not complaining of chest pain or shortness of breath. I will monitor this patient probably for 1 or 2 days, so she can be discharged home. I will monitor this patient closely on the medical floor. 2. Pancreatic cancer with liver metastasis. Apparently, she had scheduled chemotherapy today, which was canceled because of the pneumonia. I will monitor this patient closely, and I have consulted Dr. Ward to evaluate this patient. 3. Thrombocytopenia. For now, will monitor. 4. History of pulmonary embolus and deep vein thrombosis. I will continue with Xarelto 10 mg daily. 5. Chronic pain. I will continue with her home medications once reconciled. 6. Frequent nausea and vomiting. Continue with Phenergan, but I will go ahead and put her IV instead of p.o. 7. Gastroesophageal reflux disease. Continue with proton pump inhibitor. Further recommendations pending hospital course. cc: aSmmy Elias MD
[2019-04-30] MEDS: ZOSYN 3.375 GM in NS 50 ML IV SCH ×2 (04:05→10:00)
[2019-04-30] MEDS: MS CONTIN PO SCH ×6 (05:44→20:14)
--- NOTE | 2019-04-30 08:27 | Diag Imaging Result Doc PS360 ---
EXAM: CHEST-PORTABLE - 04/30/2019 HISTORY: SOB TECHNIQUE: Portable chest one view COMPARISON: 04/29/2019 chest two views FINDINGS: Heart size is normal. There are infiltrate and atelectasis at the right base similar to prior. There is a possible tiny right pleural effusion. The left lung appears clear except for slight prominence of interstitial markings. There is no pneumothorax identified. Central venous catheter remains in place. IMPRESSION: Infiltrate and atelectasis at right base similar to prior. Electronically signed by Zeeshan Cheung 04/30/2019 8:24 AM
[2019-04-30 08:58] LABS: BASO# 0.01 X1000 (0.0-0.2); BASO% 0.1 % (0.0-0.8); HEMOGLOBIN 7.8 g/dL (12.0-16.0); IMM GRAN# 0.05 X1000 (0.0-0.04); IMM GRAN% 0.5 % (0.0-0.5); LYMPH# 1.95 X1000 (1.2-3.4); MCH 35.9 PG (27-31); MCHC 32.5 g/dL (33-37); MCV 110.6 FL (81-99); MONO# 0.82 X1000 (0.11-0.59); MONO% 8.4 % (1.7-9.3); MPV 12.6 FL (7.4-10.4); NEUT# 6.91 X1000 (1.4-6.5); PLT 92 X1000 (130-400); RBC 2.17 XMIL (4.2-5.4); RDW 20.8 % (11.5-14.5); WBC 9.74 X1000 (4.8-10.8)
[2019-04-30 09:21] LABS: LYMPHS 12 % (21-51); MONO 2 % (1-9); NRBC 1 % (0-0); SEGS 86 % (42-75)
[2019-04-30 09:38] LABS: AGAP 17; ALB/GLOB RATIO 0.8; ALKALINE PHOSPHATASE 401 U/L (32-104); BUN 6 mg/dL (8-22); CHLORIDE 105 mmol/L (98-107); COSMO 268; CREATININE 0.8 mg/dL (0.5-0.9); ESTIMATED GFR > 60; GLUCOSE 76 mg/dL (70-104); GOT 34 U/L (10-30); GPT 15 U/L (10-36); POTASSIUM 3.1 mmol/L (3.5-5.1); SODIUM 136 mmol/L (136-145); TCO2 14 mmol/L (25-35); TOTAL BILIRUBIN 2.62 mg/dL (0.20-1.00); TOTAL PROTEIN 4.6 g/dL (6.3-8.3)
[2019-04-30 09:46] LABS: CALCIUM 6.6 mg/dL (8.8-10.2)
[2019-04-30 09:47] LABS: MAGNESIUM 0.6 mg/dL (1.5-2.7)
[2019-04-30] MEDS: GRALISE PO SCH (09:59)
[2019-04-30] MEDS: PRILOSEC PO SCH (10:00)
[2019-04-30] MEDS: COLACE PO SCH (10:00)
[2019-04-30] MEDS: XARELTO PO SCH (10:00)
[2019-04-30] MEDS ORDERED: MAGNESIUM SULFATE 2 GM/S.W.I. 2 GM/50 ML IVPB IV ONE (10:00)
[2019-04-30] MEDS: KLOR-CON PO SCH ×2 (10:02→20:13)
[2019-04-30 10:52] LABS: URINE SOURCE CLEAN CATCH
[2019-04-30 10:55] LABS: BILIRUBIN URINE NEGATIVE (NEGATIVE); BLOOD URINE SMALL (NEGATIVE); COLOR YELLOW; GLUCOSE URINE NEGATIVE (NEGATIVE); KETONE URINE NEGATIVE (NEGATIVE); LEUKOCYTES URINE LARGE (NEGATIVE); NITRITE URINE NEGATIVE (NEGATIVE); PROTEIN URINE 30 mg/dL (NEGATIVE); SP GRAVITY URINE 1.025; TURBIDITY URINE TURBID (CLEAR); UROBILINOGEN URINE 2 mg/dL (NORMAL)
[2019-04-30 11:08] LABS: UR EPITHELIAL CELLS <10 /HPF (<10); URINE BACTERIA NEGATIVE /HPF; URINE RBC <10 /HPF (<10); URINE WBC TNTC /HPF (<10)
[2019-04-30 11:20] LABS: URINE CASTS NONE SEEN; URINE CRYSTALS NONE SEEN; URINE SMALL ROUND CELLS NONE SEEN; URINE YEAST NONE SEEN
[2019-04-30] MEDS ORDERED: VANCOMYCIN IV PER PHARMACY MISC SCH (12:45)
[2019-04-30] MEDS ORDERED: VANCOMYCIN 1,400 MG in NS 250 ML IV ONE (14:00)
[2019-04-30] MEDS ORDERED: CALCIUM GLUCONATE 4.65 MEQ in NS 50 ML IV ONE (14:12)
[2019-04-30] MEDS: NS 1,000 ML IV SCH ×2 (14:34→20:11)
--- NOTE | 2019-04-30 15:07 | PROGRESS NOTE ---
DATE: 04/30/2019 SUBJECTIVE: This patient has been complaining of abdominal pain, but we have been having problem giving her her medications because of her low blood pressure. The systolic blood pressure has been mostly in the 70s and 80s. I had a conversation with Hematology/Oncology Department, and we have decided to send this patient to the ICU and put her on pressors due to her low blood pressure, on the other hand I have requested an evaluation by Infectious Disease Department. OBJECTIVE: Vital Signs: Temperature 97.9, pulse 115, respiratory rate 18, blood pressure 80/34, oxygen saturation 98 on room air. HEENT: Head normocephalic. No trauma. PERRLA. Icteric sclera. Skin: Jaundiced. Neck: Supple. No JVD. Central trachea. Chest: Clear to auscultation. Some crepitus and rhonchi at the level of the right base and also a little bit on the left side base. Abdomen: Soft, tender to palpation at the level of the epigastric area and periumbilical area. Extremities: No edema, no clubbing, no cyanosis. Neurologic examination: The patient is completely alert and oriented x3. No focal deficits. LABORATORY: WBC 9.7, hemoglobin 7.8, hematocrit 24, platelet 92. Sodium 136, potassium 3.1, chloride 105, bicarbonate 14, BUN 6, creatinine 0.8, glucose 76, calcium 6.6, magnesium 0.6, total bilirubin 2.62, AST 34, ALT 15, alkaline phosphatase 401, albumin 2. ASSESSMENT AND PLAN: 1. Right basilar pneumonia. Continue with antibiotics, broad-spectrum, breathing treatment, and oxygen as needed. The O2 saturation has been stable. She is not complaining of chest pain or shortness of breath but the blood pressure has been dropping, I will transfer this patient to the ICU, and I have requested an evaluation by Infectious Disease Department as well. 2. Pancreatic cancer with liver metastasis. Apparently, she was scheduled for chemotherapy yesterday, which has been canceled because of her pneumonia. Will continue to monitor. Hematology/Oncology Department already evaluated this patient. 3. Thrombocytopenia. This is chronic. 4. History of pulmonary embolus and deep venous thrombosis. Continue with Xarelto 10 mg daily. 5. Chronic pain. Continue with the home medication but we have been holding the Percocet because of the low blood pressure. 6. Recurrent nausea and vomiting. Continue with Phenergan. 7. Low blood pressure, this will be transferred to the ICU for treatment with pressors. 8. Gastroesophageal reflux disease. Continue with PPI. 9. Hypomagnesemia. I will replace the magnesium. 10.Hypocalcemia with a low ionized calcium. I will replace the calcium as well. cc: Sammy Elias MD
[2019-04-30] MEDS: XOPENEX NEB INH SCH ×2 (15:43→23:37)
[2019-04-30] MEDS: MAXIPIME 1 GM in NS 50 ML IV SCH ×2 (16:38→20:12)
--- NOTE | 2019-04-30 20:29 | HEMO/ONC CONSULTATION ---
DATE: 04/30/2019 ADMITTING PHYSICIAN: Dr. Zhang. REQUESTING PHYSICIAN: Dr. Zhang. We appreciate this consult. CHIEF COMPLAINT: Pancreatic cancer. HISTORY OF PRESENT ILLNESS: Ms. Alondra Chavez is a pleasant, 53-year-old, female, well known to Dr. Ward with a history of metastatic pancreatic cancer with metastasis to the liver. The patient has been on FOLFIRI. She is status post cycle 4 on 04/15/2019. The patient underwent CT of the chest, abdomen, and pelvis recently, which revealed pneumonia with right peritracheal adenopathy, worsened necrotic liver metastasis, and diminished pancreatic tail mass. The patient presented to [facility] the day after CAT scan, and was found to be severely weakened. The patient had a blood pressure systolically in the 80s. The patient was given IV fluids in clinic with 1 g IV Invanz. She continued to be quite hypotensive and weak. At which time, it was decided that the [facility] would [facility]. We are consulted as the patient is well known to us. PAST MEDICAL HISTORY: 1. Pancreatic cancer with liver metastasis. 2. Thrombocytopenia. 3. Chronic pain syndrome. 4. Pulmonary embolism and DVT. 5. Gastroesophageal reflux disease. 6. History of cervical cancer. PAST SURGICAL HISTORY: 1. Hysterectomy 20 years ago. 2. Cholecystectomy. 3. Port-A-Cath placement. FAMILY HISTORY: Significant for lung cancer in the patient's mother and father, as well as breast cancer and colon cancer in the patient's grandmother. MEDICATIONS ON ADMISSION: 1. Aldactone. 3. Compazine. 4. Dexamethasone. 5. Effexor XR. 6. Fentanyl. 7. Gabapentin. 8. Lasix. 9. Levaquin. 10. EMLA cream. 11. Lorazepam. 12. Marinol. 13. MS-Contin. 14. Omeprazole. 15. Percocet. 16. Promethazine. 17. Ritalin. 18. Xarelto. 19. Zofran. ALLERGIES: The patient has no known drug allergies. REVIEW OF SYSTEMS: A 14-point review of systems was obtained and is negative, except for mentioned in the HPI. PHYSICAL EXAMINATION: Ms. Chavez is a pleasant, 53-year-old female, lying supine in bed, who appears quite weak, but is in no acute distress.Vital Signs: Temperature 98.3, blood pressure 79/41, heart rate 125, respirations 18, O2 saturation 100% on room air. HEENT: Normocephalic, atraumatic. Mucous membranes are pale and somewhat dry. Sclera is slightly icteric. Extraocular movements intact. Neck: Supple. Lungs: Clear to auscultation bilaterally. Chest expansion is equal bilaterally. Cardiovascular: S1, S2 is heard. The patient is tachycardic. Abdomen: Soft, nondistended, nontender. Bowel sounds positive in all quadrants. No rebound or guarding noted. Extremities: Without clubbing, cyanosis, or edema. Dermatologic: No rashes, bruises, or lesions. Neurologic: The patient is awake, alert, and oriented x3. She has no focal deficit. LABORATORY DATA: Hemoglobin 7.8, hematocrit 24.0, white blood cell count is 9.74, platelets 92,000. Sodium 136, potassium 3.1, chloride 105, CO2 is 14, BUN 6, creatinine 0.8, glucose is 76. Calcium 6.6, magnesium 0.6, bilirubin 2.62, alkaline phosphatase 401, AST 34, ALT 15. Blood cultures are pending. CA-19-9 is 76,525.8. IMAGING STUDIES: Chest x-ray reveals infiltrate/atelectasis in the right base. ASSESSMENT AND PLAN: 1. Pancreatic cancer with liver metastasis, on FOLFIRI, status post cycle 4 on 04/15/2019. Recent CT of the chest, abdomen, and pelvis, revealed pneumonia in the right base with right paratracheal adenopathy, worsened necrotic liver metastasis and diminished pancreatic tail mass. We will hold further chemotherapy until the patient's acute illness improves. 2. Right basilar pneumonia. Currently on Zosyn and nebulizers. 3. History of pulmonary embolism. On Xarelto 10 mg daily. 4. Code status. The patient wishes to be a full code at this time. Additionally, we discussed the possibility of the need for vasopressors due to significant hypotension and the patient wishes to proceed with treatment at this time. 5. We will follow along with you and make further recommendations pending outcomes. The above reflects the history, exam, assessment, and plan of Dr. Ward. Dictated by MIYA Vang for Valente Ward MD cc: MIYA Vang MD [facility]
--- NOTE | 2019-04-30 20:44 | INFECTIOUS DISEASE CONSULT REP ---
DATE: 04/30/2019 CONCLUSION: The patient has a right lower lobe pneumonia. LABORATORIES: The patient's CBC shows a white count of 9740, hemoglobin 7.8 and platelet count 92,000. Creatinine is 0.8. GFR is greater than 60. Alkaline phosphatase is 401. Urinalysis showed white cells, but no bacteria. Blood and urine culture are pending. Chest x-ray shows a right lower lobe infiltrate/atelectasis. RECOMMENDATIONS: I have discontinued Zosyn and I placed the patient on a combination of vancomycin and cefepime. I am going to order sputum to be obtained for culture and susceptibility testing. DISCUSSION: The patient tells me approximately 2 days ago she started coughing and she had brought up some yellow sputum. She has had a drop in her blood pressure. REVIEW OF SYSTEMS: Eyes and ears: The patient hears and sees good. Neck: No stiffness. Respiratory: See present illness. Cardiac: No chest pains or palpitations. GI: No nausea, vomiting, or diarrhea. : No dysuria or flank pain. Neurologic: No history of seizures. No loss of motor or sensory function. Integument: No rash noted. [employer] HISTORY: She is a 3 para 2, AB1. She has had a hysterectomy. PREVIOUS HOSPITALIZATIONS AND OPERATIONS: She has had a cholecystectomy, placement of a right Port-A-Cath. MEDICAL DISEASES: Positive for pancreatic cancer which is being treated by chemotherapy. The patient had cervical cancer 20 years ago. INFECTIOUS DISEASE HISTORY: Negative for pneumonia and UTI. FAMILY HISTORY: Positive for cancer. Negative for heart attack. SOCIAL HISTORY[place] . She has a dog and a cat as pets. She smokes cigarettes. She does not drink alcoholic beverages or abuse drugs. ALLERGIES: The patient's chart lists no known drug allergies. HOME MEDICATIONS: Include the following gabapentin, MS Contin, omeprazole, oxycodone, promethazine, and Xarelto. PHYSICAL EXAMINATION: Vital Signs: Temperature is 97.9 degrees, pulse 115, respirations 18, blood pressure is 80/34. Patient weighs 113 pounds. Generally: This is a chronically ill and malnourished-appearing, middle-aged female is in no acute distress. Head/eyes/ears/nose/throat: She can hear my spoken words and see near objects. No drainage is coming from her nose or ears. She did not have any white patches on her tongue. Neck: No meningismus. Lungs: Clear to auscultation. Cardiovascular: Heart rate is regular. Abdomen: Soft and nontender. Neurologic: Patient is alert. She can move her extremities. There is no tremor. Her sensation is intact to touch. Her memory as regarding her medical history is intact. Integument: No rash noted. Thank you for the consult. cc: Hal Jackson MD
[2019-04-30] MEDS ORDERED: LEVOPHED 8 MG in D5 1/2 NS 250 ML IV SCH (21:32)
[2019-05-01] MEDS: MAXIPIME 1 GM in NS 50 ML IV SCH ×3 (04:18→20:04)
[2019-05-01 06:00] LABS: MAGNESIUM 1.2 mg/dL (1.5-2.7); PHOSPHORUS 2.5 mg/dL (2.7-4.5)
[2019-05-01] MEDS ORDERED: MAGNESIUM SULFATE 2 GM/S.W.I. 2 GM/50 ML IVPB IV ONE (06:10)
[2019-05-01 06:50] LABS: AGAP 14; ALB/GLOB RATIO 0.8; ALKALINE PHOSPHATASE 464 U/L (32-104); BUN 6 mg/dL (8-22); CALCIUM 7.6 mg/dL (8.8-10.2); CHLORIDE 106 mmol/L (98-107); COSMO 269; CREATININE 0.7 mg/dL (0.5-0.9); ESTIMATED GFR > 60; GLUCOSE 88 mg/dL (70-104); GOT 38 U/L (10-30); GPT 17 U/L (10-36); POTASSIUM 3.1 mmol/L (3.5-5.1); SODIUM 136 mmol/L (136-145); TCO2 16 mmol/L (25-35); TOTAL BILIRUBIN 2.48 mg/dL (0.20-1.00); TOTAL PROTEIN 4.5 g/dL (6.3-8.3)
[2019-05-01 06:59] LABS: BASO# 0.01 X1000 (0.0-0.2); BASO% 0.1 % (0.0-0.8); EOS# 0.01 X1000 (0.0-0.7); EOS% 0.1 % (0.0-10.0); HEMATOCRIT 23.2 % (37.0-47.0); HEMOGLOBIN 7.3 g/dL (12.0-16.0); IMM GRAN# 0.09 X1000 (0.0-0.04); IMM GRAN% 0.8 % (0.0-0.5); LYMPH# 1.46 X1000 (1.2-3.4); LYMPH% 12.9 % (20.5-51.1); MCH 35.1 PG (27-31); MCHC 31.5 g/dL (33-37); MCV 111.5 FL (81-99); MONO% 7.9 % (1.7-9.3); MPV 11.8 FL (7.4-10.4); NEUT# 8.87 X1000 (1.4-6.5); NEUT% 78.2 % (42.2-75.2); PLT 122 X1000 (130-400); RBC 2.08 XMIL (4.2-5.4); RDW 20.6 % (11.5-14.5); WBC 11.34 X1000 (4.8-10.8)
[2019-05-01] MEDS: MS CONTIN PO SCH ×2 (08:06→20:04)
[2019-05-01] MEDS: XARELTO PO SCH (08:07)
[2019-05-01] MEDS: NS 1,000 ML IV SCH ×3 (08:07→22:55)
[2019-05-01] MEDS: KLOR-CON PO SCH ×2 (08:07→20:04)
[2019-05-01] MEDS: COLACE PO SCH (08:07)
[2019-05-01] MEDS: PRILOSEC PO SCH (08:07)
[2019-05-01] MEDS: XOPENEX NEB INH SCH ×3 (08:23→22:23)
[2019-05-01] MEDS: GRALISE PO SCH (08:39)
[2019-05-01] MEDS: PERCOCET-10 PO PRN ×4 (08:39→21:59)
[2019-05-01] MEDS ORDERED: MS CONTIN PO ONE (08:45)
--- NOTE | 2019-05-01 08:56 | PROGRESS NOTE ---
DATE: 05/01/2019 SUBJECTIVE: This patient is lying comfortably in bed. She is coughing. Her blood pressure has been stable with a MAP around the 60s. She is not on pressors at this moment, but she is not taking the Percocet and she needs that because of her pancreatic cancer. She wants to feel normal again by taking that medication so we will try to give it to her today to see how she does and continue with antibiotics as suggested by Infectious Disease Department. OBJECTIVE: Vital Signs: Temperature 97.9 degrees, pulse 92 respiratory rate 15, blood pressure 91/50, oxygen saturation 95% on room air. HEENT: Head normocephalic, no trauma. PERRLA. Icteric sclera. Skin jaundice. Neck: Supple, no JVD neck. Central trachea. Chest: Clear to auscultation. Some crepitus and rhonchi at the level of the right base, also some crepitus on the left base. Abdomen: Soft. Tender to palpation mostly at the level of the periumbilical area. Extremities: No edema no clubbing no cyanosis. Neurological: The patient is alert and oriented and oriented x3. No focal deficits. LABORATORY: Phosphorus 2.5, magnesium 1.2. Pending CBC, CMP. ASSESSMENT AND PLAN: 1. Right basilar pneumonia. Continue with antibiotics, broad spectrum, breathing treatment and oxygen as needed. Infectious Disease Department on board. We will continue to keep an eye on this patient because of her low blood pressure in the ICU and will restart this patient on her home medications with Percocet. 2. Pancreatic cancer with liver metastasis. Apparently, she was scheduled for chemotherapy 2 days ago, which has been canceled because of the pneumonia. We will continue to monitor. Hematology/Oncology Department already evaluated this patient. 3. Sepsis with possible septic shock, she received a little bit of pressors but then the blood pressure has been more stable, mostly in the high in 80s and 90s,. We will start this patient on her home medications with Percocet. We will continue with gentle IV fluids. The patient is tolerating p.o. 4. Thrombocytopenia, this is chronic. Pending results today. 5. History of pulmonary embolism and deep venous thrombosis, continue with Xarelto 10 mg daily. 6. Chronic pain. Continue with home medications. We will restart the Percocet today, which has been on hold due to low blood pressure, but she is complaining of pain and she does not feel normal. 7. Recurrent nausea and vomiting. Continue with Phenergan. 8. Gastroesophageal reflux disease. Continue with proton pump inhibitors. 9. Hypomagnesemia I will replace the magnesium today. Again it has increased from 0.6 to 1.2. 10. Hypocalcemia. Potassium has been replaced as well yesterday pending results today. CRITICAL CARE TIME: 30 minutes. cc: Sammy Elias MD
[2019-05-01] MEDS: VANCOMYCIN 1,150 MG in NS 250 ML IV SCH (13:10)
--- NOTE | 2019-05-01 13:43 | INFECTIOUS DISEASE PROGRESS NO ---
DATE: 05/01/2019 PRESENT ILLNESS: The patient has a right lower lobe pneumonia. MEDICATIONS: The patient is on cefepime and vancomycin. PHYSICAL EXAMINATION: Vital Signs: Temperature is 98.3 degrees, pulse 105, respirations 16, blood pressure 87/42. General: This is an ill-appearing middle-aged female. She is in no acute distress, however. Head/eyes/ears/nose/throat: She can hear my spoken words and see near objects. She has poor oral hygiene. She does not have any white patches on her tongue. Neck: No pain with movement. Lungs: Clear to auscultation. Cardiovascular: Regular heart rate. Abdomen: Soft and nontender. Neurologic: The patient is alert. She can move her extremities. There is no tremor. LAB AND X-RAY: There is no new radiographic study. [place] [id number], hemoglobin 7.3, platelet count 122,000. Creatinine is 0.7. GFR is greater than 60. Alkaline phosphatase is 464. Blood cultures are negative. Urine is pending. The patient isn't coughing up sputum now, so I will not be able to order a sputum culture. ASSESSMENT AND PLAN: Patient has right lower lobe pneumonia. For now, I plan to continue with cefepime and vancomycin. COMORBIDITIES: The patient has pancreatic cancer. She had cervical cancer 20 years ago. cc: Hal Jackson MD
[2019-05-01] MEDS ORDERED: VANCOMYCIN 1,150 MG in NS 250 ML IV SCH (14:00)
[2019-05-02] MEDS: PERCOCET-10 PO PRN ×3 (01:30→19:42)
[2019-05-02] MEDS: XOPENEX NEB INH SCH ×4 (03:30→23:28)
[2019-05-02] MEDS: MAXIPIME 1 GM in NS 50 ML IV SCH ×2 (07:56→17:10)
[2019-05-02 08:15] LABS: BASO# 0.01 X1000 (0.0-0.2); BASO% 0.1 % (0.0-0.8); EOS# 0.02 X1000 (0.0-0.7); EOS% 0.3 % (0.0-10.0); HEMATOCRIT 22.9 % (37.0-47.0); HEMOGLOBIN 7.1 g/dL (12.0-16.0); IMM GRAN# 0.05 X1000 (0.0-0.04); IMM GRAN% 0.7 % (0.0-0.5); LYMPH# 1.35 X1000 (1.2-3.4); LYMPH% 19.8 % (20.5-51.1); MCV 112.8 FL (81-99); MONO# 0.64 X1000 (0.11-0.59); MONO% 9.4 % (1.7-9.3); MPV 11.3 FL (7.4-10.4); NEUT# 4.76 X1000 (1.4-6.5); NEUT% 69.7 % (42.2-75.2); PLT 102 X1000 (130-400); RBC 2.03 XMIL (4.2-5.4); RDW 20.5 % (11.5-14.5); WBC 6.83 X1000 (4.8-10.8)
[2019-05-02] MEDS: NS NEB INH SCH ×2 (08:17→15:42)
[2019-05-02 08:35] LABS: AGAP 13; ALB/GLOB RATIO 0.7; ALKALINE PHOSPHATASE 441 U/L (32-104); BUN 7 mg/dL (8-22); CALCIUM 7.7 mg/dL (8.8-10.2); CHLORIDE 109 mmol/L (98-107); COSMO 273; CREATININE 0.6 mg/dL (0.5-0.9); ESTIMATED GFR > 60; GLUCOSE 91 mg/dL (70-104); GOT 37 U/L (10-30); GPT 18 U/L (10-36); MAGNESIUM 1.6 mg/dL (1.5-2.7); PHOSPHORUS 2.6 mg/dL (2.7-4.5); POTASSIUM 3.4 mmol/L (3.5-5.1); SODIUM 138 mmol/L (136-145); TCO2 16 mmol/L (25-35); TOTAL BILIRUBIN 2.29 mg/dL (0.20-1.00); TOTAL PROTEIN 4.7 g/dL (6.3-8.3)
[2019-05-02] MEDS ORDERED: NS 500 ML IV ONE (10:11)
[2019-05-02] MEDS: COLACE PO SCH (10:33)
[2019-05-02] MEDS: KLOR-CON PO SCH ×2 (10:34→21:24)
[2019-05-02] MEDS: PRILOSEC PO SCH (10:34)
[2019-05-02] MEDS: MS CONTIN PO SCH ×2 (10:34→21:25)
[2019-05-02] MEDS: GRALISE PO SCH (10:35)
[2019-05-02] MEDS: XARELTO PO SCH (10:35)
[2019-05-02] MEDS ORDERED: TYLENOL PO ONE (12:12)
[2019-05-02] MEDS ORDERED: BENADRYL IV ONE (12:13)
--- NOTE | 2019-05-02 14:29 | PROGRESS NOTE ---
DATE: 05/02/2019 SUBJECTIVE: Patient is resting comfortably in bed. Her hemoglobin dropped to 7.1. She will receive 1 unit of PRBC. Tomorrow will discuss the case with Infectious Disease doctor to see if we are going to be able to discharge this patient soon since she is feeling better. OBJECTIVE: Vital Signs: Temperature 97.5 degrees, pulse 82, respiratory rate 14, blood pressure 84/47, oxygen saturation 95 on room air. HEENT: Head normocephalic, no trauma. PERRLA. Icteric sclerae. Skin jaundice. Neck: Supple. No JVD. Central trachea. Chest: Clear to auscultation. Some crepitus and rhonchi mostly at the level of the right base with some crepitus on the left base. Abdomen: Soft, tenderness to palpation at the level of the epigastric and periumbilical area. Extremities: No edema, no clubbing, no cyanosis. Neurological: The patient is alert, she is oriented x3. No focal deficits. LABORATORY: WBC 6.8, hemoglobin 7.1, hematocrit 22.9, Sodium 134, potassium 3.4, chloride 109, bicarbonate 16, BUN 7, creatinine 0.6, glucose 91, calcium 7.7, magnesium 1.6, AST 37, ALT 18, alkaline phosphatase 441, albumin 2. ASSESSMENT AND PLAN: 1. Right basilar pneumonia. Continue with antibiotics, broad spectrum per Infectious Disease Department, she seems to be better. We will continue with same management. 2. Pancreatic cancer with liver metastasis. Apparently she was scheduled for chemotherapy 3 days ago which has been canceled because of her pneumonia. We will continue to monitor. Hematology/Oncology Department already evaluated this patient. 3. Sepsis with possible septic shock, she received a little bit of pressors and her blood pressure has been constantly in the 80s and 90s, I do believe probably this is her baseline, her kidney function is normal and I do believe this is multifactorial due to pain medication and also the patient has been losing a lot of weight. 4. Thrombocytopenia, this is chronic, better today. 5. History of pulmonary embolism and deep vein thrombosis, continue with Xarelto 10 mg daily. 6. Chronic pain. Continue home medication. 7. Recurrent nausea and vomiting, better. 8. Gastroesophageal reflux disease. Continue with PPI. 9. Hypomagnesemia resolved. 10. Hypocalcemia resolved. 11. Hypokalemia. She has been getting potassium twice a day. cc: Sammy Elias MD MTDD
[2019-05-02] MEDS: VANCOMYCIN 1,150 MG in NS 250 ML IV SCH (17:10)
[2019-05-02] MEDS: NS 1,000 ML IV SCH (18:18)
[2019-05-02] MEDS ORDERED: NS 1,000 ML IV SCH (19:04)
[2019-05-03] MEDS: MAXIPIME 1 GM in NS 50 ML IV SCH ×2 (00:53→07:55)
[2019-05-03] MEDS: PERCOCET-10 PO PRN ×2 (03:45→07:58)
[2019-05-03 07:22] LABS: BASO# 0.02 X1000 (0.0-0.2); BASO% 0.2 % (0.0-0.8); EOS# 0.02 X1000 (0.0-0.7); EOS% 0.2 % (0.0-10.0); HEMOGLOBIN 8.8 g/dL (12.0-16.0); IMM GRAN# 0.06 X1000 (0.0-0.04); IMM GRAN% 0.7 % (0.0-0.5); LYMPH# 1.35 X1000 (1.2-3.4); LYMPH% 15.3 % (20.5-51.1); MCH 33.3 PG (27-31); MCHC 31.4 g/dL (33-37); MCV 106.1 FL (81-99); MONO# 0.71 X1000 (0.11-0.59); MPV 11.5 FL (7.4-10.4); NEUT# 6.67 X1000 (1.4-6.5); NEUT% 75.6 % (42.2-75.2); PLT 99 X1000 (130-400); RBC 2.64 XMIL (4.2-5.4); RDW 23.5 % (11.5-14.5); WBC 8.83 X1000 (4.8-10.8)
--- NOTE | 2019-05-03 07:40 | Diag Imaging Result Doc PS360 ---
CHEST-1 VIEW - 05/03/2019 INDICATION: pneumonia COMPARISON: 04/30/2019 FINDINGS: Stable right chest port in good position. There has been significant decrease in the bibasilar nonspecific infiltrates. There are stable trace pleural effusions. Heart size and pulmonary vascularity is normal. No infiltrates at this time. IMPRESSION: Improvement from prior. Trace residual pleural effusions. Electronically signed by Josias Nguyen 05/03/2019 7:37 AM
[2019-05-03 07:43] LABS: AGAP 15; ALB/GLOB RATIO 0.8; ALBUMIN 2.1 g/dL (3.5-5.0); ALKALINE PHOSPHATASE 452 U/L (32-104); BUN 5 mg/dL (8-22); CALCIUM 7.8 mg/dL (8.8-10.2); CHLORIDE 109 mmol/L (98-107); COSMO 277; CREATININE 0.6 mg/dL (0.5-0.9); ESTIMATED GFR > 60; GLUCOSE 98 mg/dL (70-104); GOT 35 U/L (10-30); GPT 20 U/L (10-36); POTASSIUM 3.3 mmol/L (3.5-5.1); SODIUM 140 mmol/L (136-145); TCO2 16 mmol/L (25-35); TOTAL BILIRUBIN 2.63 mg/dL (0.20-1.00); TOTAL PROTEIN 4.8 g/dL (6.3-8.3)
[2019-05-03] MEDS: KLOR-CON PO SCH ×2 (07:56→11:11)
[2019-05-03] MEDS: COLACE PO SCH ×2 (07:56→11:10)
[2019-05-03] MEDS: MS CONTIN PO SCH ×2 (07:57→11:10)
[2019-05-03] MEDS: PRILOSEC PO SCH ×2 (07:58→11:11)
[2019-05-03] MEDS: XARELTO PO SCH ×2 (07:58→11:11)
[2019-05-03] MEDS: GRALISE PO SCH (08:00)
[2019-05-03] MEDS: NS NEB INH SCH (08:21)
[2019-05-03] MEDS: XOPENEX NEB INH SCH (08:21)
[2019-05-03 11:30] VITALS: BP 91/46
--- NOTE | 2019-05-03 14:54 | INFECTIOUS DISEASE PROGRESS NO ---
DATE: 05/03/2019 ASSESSMENT AND PLAN: Patient has pneumonia. She is being discharged today on 10 days of treatment with the following antibiotics: Omnicef 300 mg p.o. every 12 hours and Septra single- strength 1 tablet every 12 hours both for 10 more days. I requested that the patient come to my office in 10 days for an appointment at which time she will be examined and also a chest x-ray will be obtained. cc: Hal Jackson MD
--- NOTE | 2019-05-03 19:45 | DISCHARGE SUMMARY ---
ADMISSION DATE: 04/29/2019 DISCHARGE DATE: 05/03/2019 PERTINENT PROCEDURES: Dr. Ward with Oncology Dr. Hal Jackson with Infectious Disease. DISCHARGE DIAGNOSES: 1. Right lower lobe pneumonia. The patient was initially treated with vancomycin and cefepime. She has been transitioned to Bactrim and Omnicef per infectious disease recommendations and will follow up with Dr. Jackson in 10 days. 2. Pancreatic cancer with liver metastasis. The patient will continue to follow her regular chainman/oncologist, Dr. Ward. 3. Sepsis with possible shock. The patient briefly had to be on pressors. This is completely resolved. Her blood pressures have been consistently in the 80s and 90s. We do believe that this is possibly her new baseline multifactorial due to pain medication as well as weight loss. 4. Thrombocytopenia, chronic. 5. History of PE and DVT. Continue with Xarelto. 6. Chronic pain. Continue home medications. 7. Recurrent nausea and vomiting, improved. 8. Gastroesophageal reflux disease. Continue proton pump inhibitor. 9. Hypo magnesium resolved. 10. Hypocalcemia, resolved. 11. Hypokalemia. The patient is on potassium supplementation. HOSPITAL COURSE: Briefly, Ms. Chavez is a 53-year-old female known to Dr. Ward with a history of pancreatic cancer with liver metastasis, still undergoing treatment, thrombocytopenia, chronic pain syndrome, PE and DVT on Xarelto, GERD, history of cervical cancer on the day of patient's admission, she had been to [facility] and was found to be severely weak in with blood pressures in the 80s. She was given IV fluids in the clinic as well as IV antibiotics and continued to be hypotensive. She was directed to the ED for admission and found to have a right basilar pneumonia and started on IV antibiotics with a consult for Infectious Disease as well as Oncology. She did have to be transferred to the ICU, believed to be multifactorial secondary to pain medication and her weight loss. They believe the 80s and 90s is her new baseline. She was briefly on pressors but been taken off. Her kidney function remained normal. She was not really symptomatic. Her electrolyte abnormalities were replenished and resolved. She is now appropriate for discharge back home. VITAL SIGNS: At time of discharge, temperature is 97.3 degrees, heart rate 102, respirations 16, blood pressure 191/46, O2 is 98% on room air. DISCHARGE DIET: Regular. DISCHARGE MEDICATIONS: 1. MS Contin 15 mg p.o. q. 12 hours. 2. MS Contin 30 mg p.o. q. 12 hours. 3. Gabapentin 300 mg p.o. daily. 4. Klor-Con 20 mEq p.o. b.i.d. 5. Percocet 10/325 one each p.o. q. 4 hours p.r.n. 6. Phenergan 12.5 mg p.o. b.i.d. 7. Prilosec 40 mg p.o. daily. 8. Xarelto 10 mg p.o. daily. 9. Mucinex 600 mg p.o. q. 12 hours. 10. Bactrim 1 each p.o. q. 12 hours x20 tablets. 11. Colace 20 mg p.o. daily. 12. Omnicef 300 mg p.o. q. 12 hours. FOLLOWUP: Ms. Chavez is being discharged back home with self care. She is to follow up with Dr. Hal Jackson in 10 days as well as continue follow up with her oncologist, Dr. Ward. She can return to the ED or call 911 for any worsening of symptoms. Dictated by MIYA Zamudio for Sammy Elias MD cc: MD Valente Reich MD Leroy F. Harris, MD
== END 2019-05-03 12:21 | disposition home or self-care (01) | DRG 871 ==
LOC: ED 13:50 → EDIPHOLD 18:17 → 4N 21:11 → EDIPHOLD 21:19 → 3N 21:37 → ICU 04-30 21:22 → 3N 05-01 21:33
PROVIDERS: ATTEND Internal Medicine

== ENCOUNTER 2019-06-20 00:38 | Inpatient (IN) ==
[2019-06-20] MEDS ORDERED: VANCOMYCIN 1 GM/NS 1 GM/250 ML IVPB IV ONE (01:33)
[2019-06-20] MEDS ORDERED: NS 1,000 ML IV ONE (01:33)
[2019-06-20] MEDS ORDERED: MERREM 1 GM in NS 50 ML IV ONE (01:35)
[2019-06-20 02:14] LABS: ALLEN TEST YES; BE -17.7 mmoll (-3.0-3.0); BLOOD TYPE ARTERIAL; HCO3-(ACT) 11.2 mmoll (20.0-26.0); METHB 0.8 % (0.0-1.5); O2(CT) 11.9 mL/dL (15.0-23.0); O2HB 98.1 % (95.0-99.0); PO2(98.6) 184 mmHg (60-100); SAMPLE BLOOD; SAO2 100.4 % (95.0-100.0); THB 8.3 g/dL (11.5-17.4); pH(98.6) 7.34 (7.35-7.45)
[2019-06-20 02:15] LABS: MODALITY CANNULA; PCO2(98.6) 11 mmHg (35-45)
[2019-06-20] MEDS ORDERED: MORPHINE IV ONE ×3 (02:32→08:20)
[2019-06-20 02:39] LABS: INR 2.65
[2019-06-20 02:59] LABS: PTT 89.2 Seconds (22.3-41.8)
[2019-06-20 03:37] LABS: ALBUMIN 2.6 g/dL (3.5-5.0); POTASSIUM 3.3 mmol/L (3.5-5.1)
[2019-06-20 03:54] LABS: BASO# 0.02 X1000 (0.0-0.2); BASO% 0.1 % (0.0-0.8); HEMATOCRIT 24.9 % (37.0-47.0); HEMOGLOBIN 8.3 g/dL (12.0-16.0); IMM GRAN# 0.19 X1000 (0.0-0.04); IMM GRAN% 1.2 % (0.0-0.5); LYMPH# 2.72 X1000 (1.2-3.4); LYMPH% 16.5 % (20.5-51.1); MCH 30.9 PG (27-31); MCHC 33.3 g/dL (33-37); MCV 92.6 FL (81-99); MONO# 1.31 X1000 (0.11-0.59); MONO% 7.9 % (1.7-9.3); NEUT# 12.25 X1000 (1.4-6.5); NEUT% 74.3 % (42.2-75.2); PLT 25 X1000 (130-400); RBC 2.69 XMIL (4.2-5.4); RDW 25.6 % (11.5-14.5); WBC 16.49 X1000 (4.8-10.8)
[2019-06-20 03:59] LABS: LYMPHS 16 % (21-51); MONO 1 % (1-9); NRBC 1 % (0-0); SEGS 83 % (42-75)
[2019-06-20 04:18] LABS: ALB/GLOB RATIO 0.9; CALCIUM 8.7 mg/dL (8.8-10.2)
[2019-06-20 04:19] LABS: CREATININE 1.6 mg/dL (0.5-0.9)
[2019-06-20 04:36] LABS: TOTAL BILIRUBIN 3.06 mg/dL (0.20-1.00)
--- NOTE | 2019-06-20 06:16 | HISTORY AND PHYSICAL ---
PRIMARY CARE PHYSICIAN: None. CHIEF COMPLAINT: Altered mental status. HISTORY OF PRESENTING ILLNESS: A 53-year-old female with a history of metastatic pancreatic cancer to the liver, thrombocytopenia, pulmonary embolism, and chronic pain syndrome, who was brought to the emergency department due to patient being altered. Apparently, patient was getting confused and just started began to moan. Family states that she recently had chemotherapy in about the last week or so. She was evaluated in the ER, she was moderately altered and very lethargic. It seemed, as per ER physician, that there was going to be end of life issues. Family still wanted patient to be admitted, and to continue with comfort care measures, and also to have her oncologist consulted. Due to patient's present condition, most of the history is obtained from family members and previous records. PAST MEDICAL HISTORY: Includes metastatic pancreatic cancer to liver, thrombocytopenia, pulmonary embolism, DVT, and cervical cancer. PAST SURGICAL HISTORY: Hysterectomy, cholecystectomy, and Port-A-Cath. ALLERGIES: No known drug allergies. CURRENT MEDICATIONS: Nursing staff to reconcile. SOCIAL HISTORY: The patient still has a 20 pack year history of smoking. No history of alcohol or illicit drug use. FAMILY HISTORY: No history of coronary disease. REVIEW OF SYSTEMS: Unable to assess. PHYSICAL EXAMINATION: GENERAL: The patient is basically moaning not really responsive. VITAL SIGNS: Temperature 97.3 degrees, pulse 125, and blood pressure 74/43. HEENT: Atraumatic, normocephalic. NECK: No masses. CHEST: Rhonchi. CARDIOVASCULAR: Regular rate and rhythm. ABDOMEN: Soft. Positive bowel sounds. EXTREMITIES: Trace edema. NEUROLOGIC: Patient is moaning not really responsive. : No bladder distention. SKIN: Warm. LABORATORIES AND STUDIES: WBC 16.49, hemoglobin 8.3, hematocrit 24.9, and platelets 25,000. Blood gas shows pH of 7.34, pCO2 of 11, and PO2 184. Sodium 137, potassium 3.3, chloride 91, CO2 6, BUN is 8, creatinine is 1.6, glucose 73, and magnesium is 1.3. ASSESSMENT: This is a 53-year-old female with a history of metastatic pancreatic cancer to the liver, thrombocytopenia, pulmonary embolism, DVT, and chronic pain syndrome, who was brought to the emergency department due to patient being altered and moaning. She was evaluated in the ER, and it seemed that there was end of life issues currently. Subsequently, we will admit her for further evaluation and management. 1. Altered mental status. 2. Metastatic pancreatic cancer to the liver. 3. Leukocytosis. 4. Pulmonary embolism/DVT. 5. Thrombocytopenia. 6. Anemia. PLAN: 1. We will admit patient to medical floor. 2. The patient is DNR as per family members. 3. We will consult her oncologist. 4. We will restart her home medications. 5. We will start patient on empiric antibiotics and gentle hydration. 6. We will monitor her hemoglobin and hematocrit and platelets. 7. The patient is already on anticoagulation. This will suffice for DVT prophylaxis. 8. The patient's prognosis is poor. 9. We will continue to follow and reassess, and make further recommendation based on patient's clinical course. cc: Hany Roy MD
[2019-06-20] MEDS ORDERED: ZOFRAN IV PRN (06:33)
[2019-06-20] MEDS ORDERED: DILAUDID IV ONE (06:46)
[2019-06-20] MEDS: NS 1,000 ML IV SCH ×2 (06:52→20:05)
--- NOTE | 2019-06-20 06:57 | PROVIDER DOCUMENTATION ---
This chart was entered by Denise Fink Scribe, acting as scribe for Priyank Gann MD. HPI-General Adult - General Chief Complaint: Shortness of Breath Stated Complaint: sob Time Seen by Provider: 06/20/19 01:30 Source: family () Allergies/Adverse Reactions: Patient Allergies Allergy/AdvReac Type Severity Reaction Status Date / Time Penicillins Allergy Unknown Verified 06/20/19 01:16 Home Medications: Home Medication List Medication Instructions Recorded Confirmed Last Taken Type Omeprazole [Prilosec] 40 mg PO BID 09/04/18 04/29/19 05/29/19 History Promethazine [Phenergan] 12.5 mg PO BID 02/06/19 04/29/19 05/29/19 History Rivaroxaban [Xarelto] 10 mg PO DAILY 02/24/19 04/29/19 05/28/19 History Morphine E.r. [Ms Contin] 15 mg PO Q12HR 04/29/19 04/29/19 05/26/19 History Morphine E.r. [Ms Contin] 30 mg PO Q12HR 04/29/19 04/29/19 05/26/19 History Oxycodone HCl/Acetaminophen 1 ea PO Q4H PRN PRN 04/29/19 04/29/19 05/26/19 History [Percocet 10-325 mg Tablet] Docusate Sodium [Colace] 200 mg PO DAILY cap 05/03/19 05/22/19 Rx Guaifenesin E.r. [Mucinex] 600 mg PO Q12HR #10 tab 05/03/19 05/28/19 Rx - History of Present Illness -Gen Adult Nature of Presenting Problems: 53yof presents to ED by EMS cc altered since this morning according to who is at bedside. reports pt has terminal pancreatic cancer that has spread to liver with ascites, was under going Chemo until 1wk ago b/c it made her too weak and then today started grabbing at things and asking for people who weren't there. Pt is unresponsive in ED. Onset/Duration: reports: this morning Timing: reports: still present Modifying Factors: improves with: nothing Similar Symptoms Previously?: Yes Recently seen or treated by another doctor?: Yes Review of Systems - Adult - REVIEW OF SYSTEMS - ADULT ROS:: ROS per family Constitutional: reports: see HPI, alexandra. denies: chills, fever Eyes: reports: no symptoms reported Ears, Nose, Mouth & Throat: reports: no symptoms reported Cardiovascular: reports: no symptoms reported Respiratory: reports: no symptoms reported Gastrointestinal: reports: no symptoms reported Genitourinary: reports: no symptoms reported Musculoskeletal: reports: no symptoms reported Integumentary: reports: no symptoms reported Neurological: reports: see HPI, other (altered) Psychiatric: reports: no symptoms reported Endocrine: reports: no symptoms reported Hematologic/Lymphatic: reports: no symptoms reported Allergic/Immunologic: reports: no symptoms reported All Other Systems: Reviewed and Negative Past History - Adult - PAST MEDICAL HISTORY-ADULT Review of Records: reports: Old Records Reviewed, Nursing Assessment Review, Medications Reviewed, Social history reviewed & non-contributory. Major Childhood Illnesses: reports: denies history Cardiovascular: reports: blood clots (questionable PE) Respiratory: reports: denies history Gastrointestinal: reports: cancer (pancreatic CA with mets to liver) Obstetrical/Gynecological: reports: denies history Genitourinary: reports: denies history Musculoskeletal: reports: denies history Neurological: reports: denies history Endocrine/Immune: reports: denies history Other Conditions: reports: denies history - PRIOR SURGERIES/PROCEDURES Surgical/Procedure History: reports: cholecystectomy, hysterectomy - IMMUNIZATION STATUS Childhood Immunizations: See Nurse Assessment Flu Vaccine: See Nurse Assessment - FAMILY HISTORY Family History: reviewed, not pertinent Physical Exam-General - PHYSICAL EXAM-ADULT Exam Limited by: pt condition Initial Vital Signs Reviewed: Yes - CONSTITUTIONAL General Appearance: lethargic, other (unresponsive). negative: alert, combative - GASTROINTESTINAL (ABDOMEN) Abdominal Exam: distended (tempanic) - SKIN Integumentary: jaundice Progress - PLAN OF CARE/RESULTS Progress/Plan/Lab Results: Vital Signs - 8 hr 06/20/19 00:55 06/20/19 01:16 Temperature 97.3 F L Pulse Rate 125 H Blood Pressure 74/43 O2 Sat by Pulse Oximetry 99 Orders Category Date Time Status Cardiac Monitoring DIRECTED Care 06/20/19 01:31 Active IV Insertion ORDERED Care 06/20/19 01:31 Active Notify MD of + Sepsis Screen NOW Care 06/20/19 01:31 Active Notify Physician As Ordered Care 06/20/19 01:31 Active CHEST-1 VIEW [RAD] Stat Exams 06/20/19 01:[address] HEAD W/O CONTRAST [CT] Stat Exams 06/20/19 01:33 Ordered ABG [RESP] Routine Lab 06/20/19 01:33 Ordered BLOOD CULTURE [BLDCUL] Stat Lab 06/20/19 01:31 Uncollected CBC WITH DIFF [HEME] Stat Lab 06/20/19 01:31 Uncollected CK PROFILE [SP CHEM] Stat Lab 06/20/19 01:31 Uncollected COMPREHENSIVE METABOLIC PANEL [CHEM] Stat Lab 06/20/19 01:31 Uncollected LACTATE, PLASMA [CHEM] Q3H Lab 06/20/19 01:45 Uncollected LACTATE, PLASMA [CHEM] Q3H Lab 06/20/19 04:45 Uncollected LACTATE, PLASMA [CHEM] Q3H Lab 06/20/19 07:45 Uncollected MAGNESIUM [CHEM] Stat Lab 06/20/19 01:33 Uncollected PROTIME WITH INR [COAG] Stat Lab 06/20/19 01:31 Uncollected PTT [COAG] Stat Lab 06/20/19 01:31 Uncollected TROPONIN T Stat Lab 06/20/19 01:31 Uncollected URINALYSIS W/POSS RFLX CULT [URINALYSIS] Stat Lab 06/20/19 01:31 Uncollected 0.9% Sodium Chloride Inj [Ns] 1,000 ml Med 06/20/19 01:33 Active IV 999 mls/hr Meropenem [Merrem] 1 gm Med 06/20/19 01:35 Active 0.9% Sodium Chloride Inj [Ns] 50 ml IV NOW Vancomycin 1 gm/Ns Med 06/20/19 01:33 Active 1 gm in 250 ml IV NOW Oxygen Device Stat Oth 06/20/19 01:31 Active Result Diagrams: 06/20/19 02:15 06/20/19 02:15 Departure - Departure Date of Disposition Decision: 06/20/19 Time of Disposition Decision: 01:53 DIAGNOSIS: Altered mental status Qualifiers: Altered mental status type: unspecified Qualified Code(s): R41.82 - Altered mental status, unspecified Disposition: ADMITTED INPATIENT 09 Certified Medical Emergency: Emergent Condition: Critical - Critical Care Note This patient required my direct & personal management of CC.: No Attestation - Physician/ YAN Attestation Patient care was provided by Advanced Practice Provider:: No The physician spent face to face time with patient:: Yes Advanced Practice Provider documentation review:: Supervising physician onsite and consulted in the evaluation and care of this patient. The physician did have a face to face encounter with the patient. This chart was documented by the indicated scribe, (Denise Fink, Rayshawnibedith) and accurately reflects the services I performed and decisions made by me, Priyank Gann MD, as attested by the provider's signature.
--- NOTE | 2019-06-20 07:56 | Diag Imaging Result Doc PS360 ---
EXAM: CHEST-1 VIEW 06/20/2019 HISTORY: sob TECHNIQUE: AP portable at 0155 COMMENT: Compared to 05/03/2019 the pleural effusions have resolved and the bibasilar atelectasis which was present previously is also resolved. There is a Port-A-Cath on the right with its tip in the superior vena cava. The heart size and pulmonary vascularity are within normal limits. IMPRESSION: No evidence of acute disease. Electronically signed by Wilder Mead 06/20/2019 7:54 AM
--- NOTE | 2019-06-20 08:06 | Diag Imaging Result Doc PS360 ---
EXAM: CT HEAD W/O CONTRAST 06/20/2019 HISTORY: ams TECHNIQUE: This exam was performed using automated exposure control, adjustment of mA or kV according to patient size, and/or use of iterative reconstruction technique. COMMENT: There is no evidence of mass effect, bleed, or abnormal extra-axial fluid collection. The paranasal sinuses are clear. The calvarium is intact. Compared to 04/28/2019 there has been no significant change. IMPRESSION: No evidence of acute intracranial disease. Electronically signed by Wilder Mead 06/20/2019 8:03 AM
[2019-06-20] MEDS ORDERED: ATIVAN IV ONE (08:32)
[2019-06-20 09:07] LABS: BASO# 0.02 X1000 (0.0-0.2); BASO% 0.3 % (0.0-0.8); HEMATOCRIT 23.4 % (37.0-47.0); HEMOGLOBIN 7.8 g/dL (12.0-16.0); IMM GRAN# 0.04 X1000 (0.0-0.04); IMM GRAN% 0.5 % (0.0-0.5); LYMPH# 1.79 X1000 (1.2-3.4); LYMPH% 24.3 % (20.5-51.1); MCH 31.1 PG (27-31); MCHC 33.3 g/dL (33-37); MCV 93.2 FL (81-99); MONO# 0.37 X1000 (0.11-0.59); NEUT# 5.14 X1000 (1.4-6.5); NEUT% 69.9 % (42.2-75.2); PLT 16 X1000 (130-400); RBC 2.51 XMIL (4.2-5.4); WBC 7.36 X1000 (4.8-10.8)
[2019-06-20 09:13] LABS: CALCIUM 7.9 mg/dL (8.8-10.2); CREATININE 1.3 mg/dL (0.5-0.9); POTASSIUM 2.9 mmol/L (3.5-5.1)
[2019-06-20 10:55] LABS: ANISOCYTOSIS 2+; HYPOCHROM 1+; LYMPHS 28 % (21-51); POIKILOCYTOSIS 2+; SEGS 72 % (42-75); TARGET CELLS OCCASIONAL
[2019-06-20 10:56] LABS: LARGE PLATELETS 1+; SCHISTOCYTES OCCASIONAL
[2019-06-20] MEDS: ATIVAN IV PRN ×3 (12:01→20:59)
[2019-06-20] MEDS: DILAUDID IV PRN ×3 (12:02→20:59)
[2019-06-20] MEDS: MERREM 1 GM in NS 50 ML IV SCH (15:27)
[2019-06-21] MEDS: MERREM 1 GM in NS 50 ML IV SCH (06:00)
[2019-06-21] MEDS: DILAUDID IV PRN (06:43)
--- NOTE | 2019-06-21 11:21 | PROGRESS NOTE ---
DATE: 06/21/2019 SUBJECTIVE: The patient is, unfortunately, obtunded and tachypneic but not complaining of any pain. Family is at bedside. OBJECTIVE: Vital Signs: Temperature 98.3 degrees, heart rate 58, respiratory rate 18, blood pressure 71/28, O2 saturation 98% on 2 L nasal cannula. General Examination: This is a chronically ill-appearing, frail, 53-year-old, female lying in bed, obtunded, unresponsive. Cardiovascular Examination: S1 and S2 heard. Tachycardic. No murmurs, gallops, or rubs noted. Respiratory Examination: Coarse breath sounds noted in both pulmonary resendez. Abdomen: A little bit distended. Apparently nontender to palpation. Neurological Examination: The patient is unresponsive, obtunded. ASSESSMENT: 1. Metastatic pancreatic cancer to liver. 2. Metabolic encephalopathy. 3. Pulmonary embolism. 4. Thrombocytopenia. PLAN: At this point, the patient is very sick. I think she is actively dying. At this point, we are providing comfort care measures only with Dilaudid and Ativan. We will monitor this patient closely. Patient's status Do Not Resuscitate level 1. cc: Osvaldo Severino MD MTDD
[2019-06-21 15:38] VITALS: BP 43/14
--- NOTE | 2019-06-22 07:20 | DISCHARGE SUMMARY ---
ADMISSION DATE: 06/20/2019 DISCHARGE DATE: 06/21/2019 DISCHARGE DIAGNOSIS: The patient unfortunately from the following diagnoses: 1. Metastatic pancreatic cancer to the liver. 2. Leukocytosis. 3. Pulmonary embolism. 4. Thrombocytopenia. 5. Anemia. HOSPITAL COURSE: In brief, this patient was admitted for the conditions mentioned above. Unfortunately, her clinical situation was very poor. She has approximately a week that she had a chemotherapy, and she was confused, altered. Her labs were really not good at all. Upon my evaluation, she was obtunded, tachypneic, so we decided to cancel consult for oncology, place her on comfort care measures only as per the family's request. Unfortunately, this patient on June 21, 2019, around 1945 hours. cc: Osvaldo Severino MD
== END 2019-06-21 19:45 | disposition expired | DRG 435 ==
LOC: ED 00:38 → SUATTDRO 06:24 → EDIPHOLD 06:24 → 3N 12:21
PROVIDERS: ATTEND Internal Medicine